=== PATIENT | female | born 1975 | race Caucasian/White ===

== ENCOUNTER → 2020-06-04 | Outpatient (CLI) | payer SELFPAY | LOC: WOUNDCARE 11:05 | PROVIDERS: ATTEND Orthopaedic Surgery Hand Surgery | DX: N61.1 Abscess of the breast and nipple (principal); L98.492 Non-pressure chronic ulcer of skin of other sites with fat layer exposed; J44.9 Chronic obstructive pulmonary disease, unspecified; M17.11 Unilateral primary osteoarthritis, right knee; F17.210 Nicotine dependence, cigarettes, uncomplicated | CPT/HCPCS: 10060; G0463 ==

== ENCOUNTER 2020-07-14 03:19 | Emergency (ER) | payer SELFPAY ==
[~2020-07-14] VITALS: Ht 165 cm; Wt 90.9 kg
[2020-07-14 03:30] VITALS: BP 140/78
[2020-07-14] MEDS ORDERED: RT-ALBUTEROL INHALER HFA (VENTOLIN HFA) 18 GM IH ONE (03:33)
[2020-07-14] MEDS ORDERED: IPRA3AMP31 (03:40)
[2020-07-14] MEDS ORDERED: TIOT18CA2 (03:40)
[2020-07-14] MEDS ORDERED: PROAIR (03:40)
[2020-07-14] MEDS ORDERED: NS IV 1000 ML 1,000 ML IV SCH (03:43)
[2020-07-14] MEDS ORDERED: MAGNESIUM 1 GM/100 ML IVPB 100 ML IV ONE ×2 (03:45)
[2020-07-14] MEDS ORDERED: methylPREDNISolone 125 MG (Solu-MEDROL) VIAL IVP ONE (03:45)
[2020-07-14] MEDS ORDERED: RT-ALBUTEROL/IPRATROPIUM 3 ML (DUONEB) VIAL INH ONE (03:45)
[2020-07-14 03:54] LABS: BASOPHILS % (AUTO) 0 % (0-10); EOSINOPHILS # (AUTO) 0.7 10^3/uL (0.0-0.3); EOSINOPHILS % (AUTO) 8 % (0-10); HEMATOCRIT 44 % (35-52); HEMOGLOBIN 14.2 G/DL (11.5-16.0); LYMPHOCYTES # (AUTO) 1.9 X 10^3 (1.0-4.0); LYMPHOCYTES % (AUTO) 23 % (12-44); MEAN CORPUSCULAR HEMOGLOBIN 29 PG (25-34); MEAN CORPUSCULAR HGB CONC 33 G/DL (32-36); MEAN CORPUSCULAR VOLUME 90 FL (80-99); MEAN PLATELET VOLUME 9.4 FL (7.4-10.4); MONOCYTES # (AUTO) 0.6 X 10^3 (0.0-1.0); MONOCYTES % (AUTO) 7 % (0-12); NEUTROPHILS # (AUTO) 5.1 X 10^3 (1.8-7.8); NEUTROPHILS % (AUTO) 62 % (42-75); PLATELET COUNT 309 10^3/uL (130-400); RED CELL DISTRIBUTION WIDTH 13.1 % (10.0-14.5); WHITE BLOOD COUNT 8.3 10^3/uL (4.3-11.0)
[2020-07-14 04:04] LABS: ALBUMIN 3.6 GM/DL (3.2-4.5); CHLORIDE 103 MMOL/L (98-107)
[2020-07-14 04:05] LABS: SODIUM 138 MMOL/L (135-145)
[2020-07-14 04:06] LABS: CALCIUM 8.9 MG/DL (8.5-10.1)
[2020-07-14 04:07] LABS: GLUCOSE 152 MG/DL (70-105); TOTAL PROTEIN 6.8 GM/DL (6.4-8.2)
[2020-07-14 04:08] LABS: CARBON DIOXIDE 23 MMOL/L (21-32)
[2020-07-14 04:09] LABS: BILIRUBIN,TOTAL 0.2 MG/DL (0.1-1.0)
[2020-07-14 04:10] LABS: ALKALINE PHOSPHATASE 61 U/L (40-136)
[2020-07-14 04:11] LABS: GFR ESTIMATED > 60
[2020-07-14 04:12] LABS: BUN/CREATININE RATIO 11
[2020-07-14 04:13] LABS: ALANINE AMINOTRANSFERASE 19 U/L (0-55)
--- NOTE | 2020-07-14 04:50 | NUR ---
PT ON PHONE WITH ET. REQUESTED THEY COME GET HER. STATED SHE WAS LEAVING AT THIS TIME.
--- NOTE | 2020-07-14 04:50 | NUR ---
AMA SHEET NOT SIGNED D/T PUI STATUS
--- NOTE | 2020-07-14 05:52 | Diagnostic Imaging Report ---
Indication: Reactive airway disease Portable chest 4:09 AM Heart size and pulmonary vascularity are normal. Lungs are clear. There are no effusions or pneumothoraces. IMPRESSION: Negative chest Dictated by: Dictated on workstation # [id number]
== END 2020-07-14 04:52 | disposition left against medical advice (07) ==
LOC: EDUNIT# 03:19 → ER 03:22
DX: R06.02 Shortness of breath (principal)
CPT/HCPCS: 36415; 71045; 80053; 83615; 83735; 83880; 84145; 85025; 86141

== ENCOUNTER 2020-09-07 19:18 | Inpatient (IN) | payer SELFPAY ==
[~2020-09-07] VITALS: Ht 160 cm; Wt 95.0 kg
[~2020-09-07 19:18] MED LIST: IPRA3AMP31; PROAIR; TIOT18CA2
--- NOTE | 2020-09-07 20:32 | ED Integumentary General ---
General Chief Complaint: Skin/Wound Problems Stated Complaint: SORE ON UPPER LIP Nursing Triage Note: PT ARRIVES TO ER WITH C/O UPPER LIP INFECTION. SHE WAS SEEN BY [facility] THIS WEEK FOR IT WELL History of Present Illness Date Seen by Provider: Sep 07, 2020 Time Seen by Provider: 20:15 Initial Comments This is a 45-year-old female who presents to the ER for complaints of a sore on her upper lip and nose. States she was evaluated and treated at [facility] 2 days ago for cellulitis and placed on Bactrim and Bactroban ointment. States she had what appeared to be a "white head" on her upper lip and she popped it she believes a week ago. States the white head returned worse than previous. States her upper lip has progressively worsened in swelling and redness despite taking Bactrim and applying Bactroban TID. Reports chills, unknown fevers. Denies cough, headache, shortness of breath, nausea/vomiting. Allergies and Home Medications Allergies Coded Allergies: No Known Drug Allergies (Unverified , 07/14/20) Patient Home Medication List Home Medication List Reviewed: Yes Review of Systems Review of Systems Constitutional: chills; No fever EENTM: see HPI Respiratory: cough (chronic) Cardiovascular: no symptoms reported Gastrointestinal: no symptoms reported Genitourinary: no symptoms reported Musculoskeletal: no symptoms reported Skin: see HPI Psychiatric/Neurological: No Symptoms Reported Endocrine: No Symptoms Reported Hematologic/Lymphatic: No Symptoms Reported Past Qklllui-Vbxbhm-Ftbegn Hx Patient Social History Alcohol Use: Denies Use Recreational Drug Use: Yes Drug of Choice: MARIJUANA Type Used: Cigarettes 2nd Hand Smoke Exposure: Yes Recent Foreign Travel: No Contact w/Someone Who Travel: No Recent Infectious Disease Expo: No Recent Hopitalizations: No Immunizations Up To Date Tetanus Booster (TDap): Less than 5yrs Seasonal Allergies Seasonal Allergies: No Past Medical History Surgeries: No Respiratory: Yes Asthma, COPD, Emphysema Cardiac: Yes High Cholesterol, Hypertension Neurological: No Genitourinary: No Gastrointestinal: Yes Gastroesophageal Reflux Musculoskeletal: Yes (CARPEL TUNNEL) HEENT: No Cancer: No Psychosocial: Yes Anxiety, Depression Integumentary: No Blood Disorders: No Physical Exam Vital Signs Vital Signs - First Documented 09/07/20 19:42 Temp 35.4 Pulse 88 Resp 16 B/P (MAP) 126/88 (101) Pulse Ox 96 Capillary Refill : Less Than 3 Seconds General Appearance: WD/WN, no apparent distress Neck: non-tender, full range of motion, normal inspection Cardiovascular: regular rate, rhythm, no edema, no murmur Respiratory: chest non-tender, normal breath sounds, no respiratory distress, no accessory muscle use, decreased breath sounds Gastrointestinal: normal bowel sounds, non tender, soft Neurologic/Psychiatric: no motor/sensory deficits, alert, normal mood/affect, oriented x 3 Skin: other Skin Problem Location: other (upper lip ) Skin Problem Character: erythema, lesion, vesicular, warm Progress/Results/Core Measures Results/Orders Lab Results Laboratory Tests Test 09/07/20 20:29 09/07/20 20:41 Range/Units White Blood Count 15.1 H 4.3-11.0 10^3/uL Red Blood Count 4.69 3.80-5.11 10^6/uL Hemoglobin 14.5 11.5-16.0 g/dL Hematocrit 43 35-52 % Mean Corpuscular Volume 91 80-99 fL Mean Corpuscular Hemoglobin 31 25-34 pg Mean Corpuscular Hemoglobin Concent 34 32-36 g/dL Red Cell Distribution Width 12.8 10.0-14.5 % Platelet Count 359 130-400 10^3/uL Mean Platelet Volume 9.1 9.0-12.2 fL Immature Granulocyte % (Auto) 0 % Neutrophils (%) (Auto) 76 H 42-75 % Lymphocytes (%) (Auto) 12 12-44 % Monocytes (%) (Auto) 8 0-12 % Eosinophils (%) (Auto) 3 0-10 % Basophils (%) (Auto) 0 0-10 % Neutrophils # (Auto) 11.5 H 1.8-7.8 10^3/uL Lymphocytes # (Auto) 1.9 1.0-4.0 10^3/uL Monocytes # (Auto) 1.2 H 0.0-1.0 10^3/uL Eosinophils # (Auto) 0.4 H 0.0-0.3 10^3/uL Basophils # (Auto) 0.1 0.0-0.1 10^3/uL Immature Granulocyte # (Auto) 0.1 0.0-0.1 10^3/uL Neutrophils % (Manual) 78 % Lymphocytes % (Manual) 10 % Monocytes % (Manual) 7 % Eosinophils % (Manual) 2 % Band Neutrophils 1 % Atypical Lymphocytes 2 % Anisocytosis SLIGHT Prothrombin Time 13.5 12.2-14.7 SEC INR Comment 1.0 0.8-1.4 Activated Partial Thromboplast Time 33 24-35 SEC Sodium Level 137 135-145 MMOL/L Potassium Level 4.1 3.6-5.0 MMOL/L Chloride Level 101 98-107 MMOL/L Carbon Dioxide Level 26 21-32 MMOL/L Anion Gap 10 5-14 MMOL/L Blood Urea Nitrogen 8 7-18 MG/DL Creatinine 0.79 0.60-1.30 MG/DL Estimat Glomerular Filtration Rate > 60 BUN/Creatinine Ratio 10 Glucose Level 105 70-105 MG/DL Lactic Acid Level 1.26 0.50-2.00 MMOL/L Calcium Level 9.2 8.5-10.1 MG/DL Corrected Calcium 9.3 8.5-10.1 MG/DL Total Bilirubin 0.4 0.1-1.0 MG/DL Aspartate Amino Transf (AST/SGOT) 14 5-34 U/L Alanine Aminotransferase (ALT/SGPT) 19 0-55 U/L Alkaline Phosphatase 79 40-136 U/L Total Protein 7.5 6.4-8.2 GM/DL Albumin 3.9 3.2-4.5 GM/DL Serum Test, Qualitative NEGATIVE NEGATIVE Urine Color YELLOW Urine Clarity CLOUDY Urine pH 7.0 5-9 Urine Specific [place] 1.025 H 1.016-1.022 Urine Protein TRACE H NEGATIVE Urine Glucose (UA) NEGATIVE NEGATIVE Urine Ketones NEGATIVE NEGATIVE Urine Nitrite NEGATIVE NEGATIVE Urine Bilirubin NEGATIVE NEGATIVE Urine Urobilinogen 0.2 < = 1.0 MG/DL Urine Leukocyte Esterase 2+ H NEGATIVE Urine RBC (Auto) NEGATIVE NEGATIVE Urine RBC 0-2 /HPF Urine WBC 50-100 H /HPF Urine Squamous Epithelial Cells 10-25 H /HPF Urine Crystals NONE /LPF Urine Bacteria MODERATE H /HPF Urine Casts NONE /LPF Urine Mucus NEGATIVE /LPF Urine Culture Indicated YES My Orders Orders - LAINEY CARTAGENA TELLER VAULT Cbc With Automated Diff (09/07/20 20:15) Comprehensive Metabolic Panel (09/07/20 20:15) Blood Culture (09/07/20 20:15) Protime With Inr (09/07/20 20:15) Partial Thromboplastin Time (09/07/20 20:15) Ed Iv/Invasive Line Start (09/07/20 20:15) Vital Signs Adult Sepsis Patie Q15M (09/07/20 20:15) Lactic Acid Analyzer (09/07/20 20:15) Acyclovir Injection (Zovirax Injection) (09/07/20 22:00) Hcg,Qualitative Serum (09/07/20 20:18) Iohexol Injection (Omnipaque 350 Mg/Ml 1 (09/07/20 20:45) Received Contrast (Hold Metformin- Contr (09/07/20 20:45) Ns (Ivpb) (Sodium Chloride 0.9% Ivpb Bag (09/07/20 20:45) Manual Differential (09/07/20 20:29) Ua Culture If Indicated (09/07/20 20:52) Fentanyl Injection (Sublimaze Injection (09/07/20 21:00) Urine Culture (09/07/20 20:41) Piperacillin Sodium/Tazobactam (Zosyn Vi (09/07/20 21:30) Medications Given in ED Current Medications Medications Dose Ordered Sig/Shamar Route Start Time Stop Time Status Last Admin Dose Admin Fentanyl Citrate 50 mcg ONCE ONCE IVP 09/07/20 21:00 09/07/20 21:01 DC 09/07/20 21:12 50 MCG Iohexol 75 ml ONCE ONCE IV 09/07/20 20:45 09/07/20 21:09 DC 09/07/20 20:57 75 ML Piperacillin Sod/ Tazobactam Sod 4.5 gm/Sodium Chloride 100 ml @ 200 mls/hr ONCE ONCE IV 09/07/20 21:30 09/07/20 21:59 DC 09/07/20 21:33 200 MLS/HR Sodium Chloride 100 ml ONCE ONCE IV 09/07/20 20:45 09/07/20 21:09 DC 09/07/20 20:57 80 ML Vital Signs/I&O 09/07/20 19:42 Temp 35.4 Pulse 88 Resp 16 B/P (MAP) 126/88 (101) Pulse Ox 96 09/08/20 00:00 Intake Total 100 ml Balance 100 ml Blood Pressure Mean: 101 Progress Progress Note : Progress Note Due to location and characteristics of swelling/rash the sepsis protocol was initiated. She was transferred from FT-1 to Exam room [address] maxillofacial with contrast ordered. CT shows abscess formation. Case was discussed with Dr. Morel for surgical consult. He requested NPO status after midnight for possible I&D of abscess in AM. Discussed case with Dr. Vieira and she agrees with inpatient admission to the medical unit with telemetry. VSS. Plan: Admit inpatient with telemetry to the medical unit Facial Cellulitis/UTI: -Vancomycin 1gm IV q12 hours, pharmacy to dose -Zosyn 4.5mg IV q 8 hours -Acyclovir 500mg IV q 8 hours -NS at 75ml/hr -NPO after midnight for possible I&D in AM. Pain/fever: -Fentanyl 50mcg IVP q 2 hours PRN pain -Acetaminophen 650mg PO q 6 hours PRN Nausea -Zofran 4mg IVP q4 hours PRN nausea Diagnostic Imaging Diagonstic Imaging: CT Plain Films/CT/US/NM/MRI: facial bones Comments NAME: NICHELLE MCDONNELL MED REC#: [id number] PT STATUS: REG ER : 1975 PHYSICIAN: HECTOR ROSARIO MD ADMIT DATE: 09/07/20/ER Signed Date of Exam:09/07/20 CT MAXILLOFACIAL W PROCEDURE: CT maxillofacial with contrast. TECHNIQUE: After intravenous administration of contrast, axial images were obtained through the face and reformatted into coronal and sagittal planes. Auto Exposure Controls were utilized during the CT exam to meet ALARA standards for radiation dose reduction. INDICATION: Cellulitis. COMPARISON: None. FINDINGS: Edema within the midline upper lip extending into the nasal septum. There is central low attenuation consistent with abscess formation measuring approximately 1.4 x 1.1 cm in diameter. This abscess is contiguous with dental caries in the maxillary medial incisors, bilaterally. There are no periapical lucencies about these medial incisors. No large periapical lucencies about the maxillary or mandibular dentition. There are additional dental caries within the maxillary and mandibular molars. The floor of the mouth and tongue base are unremarkable. Mild mucosal thickening in the right maxillary sinus. The visualized mastoids and middle ears are clear. No fracture. Normal alignment of the temporomandibular joints. IMPRESSION: Edema within the upper lip along the midline extending into the nasal septum with central low-attenuation compatible with an abscess. This edema and abscess are confluent with dental caries in the medial maxillary incisors, bilaterally. However, there are no large periapical lucencies about the dentition. Dictated by: Dictated on workstation # [id number] Reviewed: [facility] Time/Spoke to Admitting Phy: 21:[address] Vieira, agreeable with inpatient admission with telemetry to medical surgical floor. Time/Spoke to Consulting Phy: 21:[address] Morel, recommended nothing by mouth after midnight for possible incision and drainage of abscess and a.m. Impression Primary Impression: Cellulitis and abscess of mouth Disposition: ADMITTED INPATIENT Condition: Stable Admissions Decision to Admit Reason: Admit from ER (General) Decision to Admit/Date: Sep 07, 2020 Time/Decision to Admit Time: 21:00 Departure-Patient Inst. Referrals: NETTE JOYCE (PCP/Family) Primary Care Physician LAINEY CARTAGENA TELLER VAULT Sep 07, 2020 20:32
[2020-09-07 20:39] LABS: BASOPHILS # (AUTO) 0.1 10^3/uL (0.0-0.1); BASOPHILS % (AUTO) 0 % (0-10); EOSINOPHILS # (AUTO) 0.4 10^3/uL (0.0-0.3); EOSINOPHILS % (AUTO) 3 % (0-10); HEMATOCRIT 43 % (35-52); HEMOGLOBIN 14.5 g/dL (11.5-16.0); LYMPHOCYTES # (AUTO) 1.9 10^3/uL (1.0-4.0); LYMPHOCYTES % (AUTO) 12 % (12-44); MEAN CORPUSCULAR HEMOGLOBIN 31 pg (25-34); MEAN CORPUSCULAR HGB CONC 34 g/dL (32-36); MEAN CORPUSCULAR VOLUME 91 fL (80-99); MEAN PLATELET VOLUME 9.1 fL (9.0-12.2); MONOCYTES # (AUTO) 1.2 10^3/uL (0.0-1.0); MONOCYTES % (AUTO) 8 % (0-12); NEUTROPHILS # (AUTO) 11.5 10^3/uL (1.8-7.8); NEUTROPHILS % (AUTO) 76 % (42-75); PLATELET COUNT 359 10^3/uL (130-400); WHITE BLOOD COUNT 15.1 10^3/uL (4.3-11.0)
[2020-09-07] MEDS ORDERED: HOLD METFORMIN - RECEIVED CONTRAST 20 ML VIAL IV SCH (20:45)
[2020-09-07] MEDS ORDERED: NS 100 ML (IVPB) BAG IV ONE (20:45)
[2020-09-07] MEDS ORDERED: IOHEXOL 350 MG/ML 100 ML (OMNIPAQUE 350) VIAL IV ONE (20:45)
[2020-09-07 20:49] LABS: ALBUMIN 3.9 GM/DL (3.2-4.5)
[2020-09-07 20:50] LABS: CHLORIDE 101 MMOL/L (98-107); POTASSIUM 4.1 MMOL/L (3.6-5.0); PROTHROMBIN TIME PATIENT 13.5 SEC (12.2-14.7); SODIUM 137 MMOL/L (135-145)
[2020-09-07 20:51] LABS: CALCIUM 9.2 MG/DL (8.5-10.1)
[2020-09-07 20:52] LABS: GLUCOSE 105 MG/DL (70-105); TOTAL PROTEIN 7.5 GM/DL (6.4-8.2)
[2020-09-07 20:53] LABS: CARBON DIOXIDE 26 MMOL/L (21-32)
[2020-09-07 20:54] LABS: BILIRUBIN,TOTAL 0.4 MG/DL (0.1-1.0)
[2020-09-07 20:55] LABS: ALKALINE PHOSPHATASE 79 U/L (40-136)
[2020-09-07 20:56] LABS: CREATININE SERUM 0.79 MG/DL (0.60-1.30); GFR ESTIMATED > 60
[2020-09-07 20:57] LABS: BUN/CREATININE RATIO 10
[2020-09-07 20:57] LABS: BILIRUBIN,URINE NEGATIVE (NEGATIVE); CLARITY,URINE CLOUDY; COLOR,URINE YELLOW; GLUCOSE, URINE (UA) NEGATIVE (NEGATIVE); KETONES,URINE NEGATIVE (NEGATIVE); LEUKOCYTE ESTERASE ,URINE 2+ (NEGATIVE); NITRITE,URINE NEGATIVE (NEGATIVE); PROTEIN,URINE TRACE (NEGATIVE)
[2020-09-07 20:59] LABS: ALANINE AMINOTRANSFERASE 19 U/L (0-55)
[2020-09-07] MEDS ORDERED: ceFAZolin 2 GM IV Premixed 50 ML IV ONE (21:00)
[2020-09-07] MEDS ORDERED: fentaNYL INJECTION 100 MCG/2 ML AMP IVP ONE (21:00)
[2020-09-07 21:06] LABS: ANISOCYTOSIS SLIGHT; ATYPICAL LYMPHOCYTES 2 %; BAND NEUTROPHILS 1 %; EOSINOPHILS % (MANUAL) 2 %; LYMPHOCYTES % (MANUAL) 10 %; MONOCYTES % (MANUAL) 7 %; NEUTROPHILS % (MANUAL) 78 %
[2020-09-07 21:06] LABS: RBC,URINE 0-2 /HPF
[2020-09-07 21:07] LABS: BACTERIA,URINE MODERATE /HPF; WBC,URINE 50-100 /HPF
--- NOTE | 2020-09-07 21:08 | NUR ---
Recieved report from PAUL Vogt to assume care of pt at this time.
--- NOTE | 2020-09-07 21:20 | Diagnostic Imaging Report ---
PROCEDURE: CT maxillofacial with contrast. TECHNIQUE: After intravenous administration of contrast, axial images were obtained through the face and reformatted into coronal and sagittal planes. Auto Exposure Controls were utilized during the CT exam to meet ALARA standards for radiation dose reduction. INDICATION: Cellulitis. COMPARISON: None. FINDINGS: Edema within the midline upper lip extending into the nasal septum. There is central low attenuation consistent with abscess formation measuring approximately 1.4 x 1.1 cm in diameter. This abscess is contiguous with dental caries in the maxillary medial incisors, bilaterally. There are no periapical lucencies about these medial incisors. No large periapical lucencies about the maxillary or mandibular dentition. There are additional dental caries within the maxillary and mandibular molars. The floor of the mouth and tongue base are unremarkable. Mild mucosal thickening in the right maxillary sinus. The visualized mastoids and middle ears are clear. No fracture. Normal alignment of the temporomandibular joints. IMPRESSION: Edema within the upper lip along the midline extending into the nasal septum with central low-attenuation compatible with an abscess. This edema and abscess are confluent with dental caries in the medial maxillary incisors, bilaterally. However, there are no large periapical lucencies about the dentition. Dictated by: Dictated on workstation # [id number]
[2020-09-07] MEDS ORDERED: PIPERACILLIN SODIUM/TAZOBACTAM 4.5 GM in NS (IVPB) 100 ML IV ONE (21:30)
[2020-09-07] MEDS ORDERED: ACYCLOVIR INJECTION 800 MG in NS (IVPB) 250 ML IV SCH (22:00)
--- NOTE | 2020-09-07 23:20 | NUR ---
NICHELLE MCDONNELL admitted to room 405-1, with an admitting diagnosis of FACIAL CELLULITIS W/ABSCESS, on 09/07/20 from ED via , accompanied by STAFF.NICHELLE MCDONNELL introduced to surroundings, call light, bed controls, phone, TV, temperature control, lights, meal times, smoking policy, visitor policy, side rail policy, bathrooms and showers. Patient Rights given to patient in the handbook.NICHELLE MCDONNELL verbalizes understanding that [facility] is not responsible for the loss or damage to any personal effects or valuables that are kept in the patients posession during their hospitalization.
[2020-09-07] MEDS ORDERED: RT-ALBUTEROL/IPRATROPIUM 3 ML (DUONEB) VIAL ONE (23:22)
[2020-09-07] MEDS ORDERED: ACETAMINOPHEN 325 MG TABLET PO PRN (23:45)
[2020-09-07] MEDS ORDERED: ONDANSETRON 4 MG/2 ML (SDV) Z0FRAN IVP PRN (23:45)
[2020-09-08] VITALS (8 sets, daily range): BP systolic 110–158; BP diastolic 64–87
[2020-09-08] MEDS ORDERED: PIPERACILLIN/TAZO 4.5 GM VIAL (ZOSYN) IV ONE (01:10)
[2020-09-08] MEDS ORDERED: NS (IVPB) 100 ML ONE (01:10)
[2020-09-08] MEDS ORDERED: NS (IVPB) 250 ML ONE ×2 (01:10→02:37)
[2020-09-08] MEDS ORDERED: VANCOMYCIN 1000 MG/VIAL ONE ×2 (01:11→02:38)
[2020-09-08] MEDS ORDERED: ACYCLOVIR 500 MG/10 ML INJ (ZOVIRAX) VIAL IV ONE (01:11)
[2020-09-08] MEDS: fentaNYL INJECTION 100 MCG/2 ML AMP IVP PRN ×7 (01:32→23:44)
[2020-09-08] MEDS: NS IV 1000 ML 1,000 ML IV SCH ×2 (01:32→12:40)
[2020-09-08] MEDS: VANCOMYCIN 1 GM/NS 250 ML IVPB IV SCH ×10 (01:32→13:47)
[2020-09-08] MEDS ORDERED: VANCOMYCIN 1 GM/NS 250 ML IVPB IV SCH ×2 (03:00)
[2020-09-08] MEDS: RT-ALBUTEROL/IPRATROPIUM 3 ML (DUONEB) VIAL INH SCH ×7 (03:32→21:08)
[2020-09-08] MEDS: PIPERACILLIN/TAZO 4.5 GM/NS 100 ML IV SCH ×6 (04:09→20:23)
[2020-09-08 04:39] LABS: BASOPHILS % (AUTO) 0 % (0-10); EOSINOPHILS # (AUTO) 0.5 10^3/uL (0.0-0.3); EOSINOPHILS % (AUTO) 3 % (0-10); HEMATOCRIT 40 % (35-52); HEMOGLOBIN 13.5 g/dL (11.5-16.0); LYMPHOCYTES # (AUTO) 2.1 10^3/uL (1.0-4.0); LYMPHOCYTES % (AUTO) 14 % (12-44); MEAN CORPUSCULAR HEMOGLOBIN 31 pg (25-34); MEAN CORPUSCULAR HGB CONC 34 g/dL (32-36); MEAN CORPUSCULAR VOLUME 91 fL (80-99); MEAN PLATELET VOLUME 9.2 fL (9.0-12.2); MONOCYTES # (AUTO) 1.3 10^3/uL (0.0-1.0); MONOCYTES % (AUTO) 9 % (0-12); NEUTROPHILS # (AUTO) 11.6 10^3/uL (1.8-7.8); NEUTROPHILS % (AUTO) 74 % (42-75); PLATELET COUNT 334 10^3/uL (130-400); WHITE BLOOD COUNT 15.7 10^3/uL (4.3-11.0)
[2020-09-08 04:49] LABS: ALBUMIN 3.6 GM/DL (3.2-4.5); CHLORIDE 103 MMOL/L (98-107); POTASSIUM 3.8 MMOL/L (3.6-5.0); SODIUM 137 MMOL/L (135-145)
[2020-09-08 04:50] LABS: CALCIUM 8.8 MG/DL (8.5-10.1)
[2020-09-08 04:52] LABS: GLUCOSE 97 MG/DL (70-105); TOTAL PROTEIN 6.8 GM/DL (6.4-8.2)
[2020-09-08 04:53] LABS: BILIRUBIN,TOTAL 0.4 MG/DL (0.1-1.0); CARBON DIOXIDE 23 MMOL/L (21-32)
[2020-09-08 04:55] LABS: ALKALINE PHOSPHATASE 71 U/L (40-136); GFR ESTIMATED > 60
[2020-09-08 04:56] LABS: BUN/CREATININE RATIO 10
[2020-09-08 04:58] LABS: ALANINE AMINOTRANSFERASE 16 U/L (0-55)
[2020-09-08] MEDS ORDERED: ACYCLOVIR INJECTION 500 MG in NS (IVPB) 100 ML IV SCH (06:00)
[2020-09-08] MEDS: ACYCLOVIR INJECTION 500 MG in NS (IVPB) 100 ML IV SCH ×3 (06:30→23:53)
[2020-09-08] MEDS ORDERED: LIDOCAINE 1% INJ 50 ML (XYLOCAINE) VIAL IJ ONE (08:30)
[2020-09-08] MEDS ORDERED: LIDOCAINE 1% INJ 20 ML 20 ML VIAL ONE (08:33)
--- NOTE | 2020-09-08 09:10 | NUR ---
Collected material and consent for Dr. Morel per verbal request. Items collected consisted of a laceration kit, an 11 blade, 1% lidocaine, cultures ordered aerobic and anaerobic, and quarter inch iodoform.
--- NOTE | 2020-09-08 09:19 | Consultation - Surgery ---
ASHISH PRADO MED STUDENT 09/08/20 0919: History of Present Illness History of Present Illness Patient Consulted On(nuris/time) 09/08/20 0800 Date Seen by Provider: Sep 08, 2020 Time Seen by Provider: 08:00 History of Present Illness Patient presented to ED last night with chief complaint of upper lip and nose swelling. She was seen at [facility] several days ago and diagnosed with facial cellu litis. At that point in time she was started on bactrim and bactroban. She states that originally one week ago she had what appeared to be a "white head" appear on her upper lip. She proceeded to pop it herself and the "white head" appearing lesion reoccured again. She reports the pain is dull/achy and constant. Nothing improves the pain. Eating and talking worsen the pain. Allergies and Home Medications Allergies Coded Allergies: No Known Drug Allergies (Unverified , 07/14/20) Home Medications Albuterol Sulfate 1 Puff Puff, 2 PUFF INH QID PRN for SHORTNESS OF BREATH, (Reported) Brexpiprazole 0.25 Mg Tablet, Unknown Dose PO HS, (Reported) PATIENT RECIEVES FROM [facility]. FOR ADDITIONAL INFO SEE FINAL NOTE. Escitalopram Oxalate 20 Mg Tablet, 20 MG PO DAILY, (Reported) LAST FILLED 08/08/2020 #90/ DAY SUPPLY Ibuprofen 800 Mg Tablet, 800 MG PO TID PRN for PAIN-MILD, (Reported) LAST FILLED 09/05/2020 #21 Ipratropium/Albuterol Sulfate 3 Ml Ampul.neb, 3 ML IH Q4H PRN for SHORTNESS OF BREATH, (Reported) Meloxicam 15 Mg Tablet, 15 MG PO DAILY, (Reported) LAST FILLED 08/08/2020 #90/90 DAY SUPPLY Mometasone/Formoterol 13 Gm Hfa.aer.ad, 2 PUFF INH DAILY, (Reported) RINSE MOUTH AFTER EACH USE Montelukast Sodium 10 Mg Tablet, 10 MG PO DAILY, (Reported) LAST FILLED 08/08/2020 #30/30 DAY SUPPLY Mupirocin 22 Gm Oint...g., 1 APPLIC TP TID, (Reported) LAST FILLED 09/05/2020 5 DAY SUPPLY Pantoprazole Sodium 40 Mg Tablet.dr, 40 MG PO DAILY PRN for HEARTBURN, (Reported) Sulfamethoxazole/Trimethoprim 1 Each Tablet, 1 EACH PO BID, (Reported) LAST FILLED 09/05/2020 #20/10 DAY SUPPLY Past Vwnignj-Cohfee-Njwukp Hx Patient Social History Alcohol Use: Denies Use Recreational Drug Use: Yes Drug of Choice: MARIJUANA Type Used: Cigarettes 2nd Hand Smoke Exposure: Yes Recent Foreign Travel: No Contact w/Someone Who Travel: No Recent Infectious Disease Expo: No Recent Hopitalizations: No Immunizations Up To Date Tetanus Booster (TDap): Less than 5yrs Seasonal Allergies Seasonal Allergies: No Surgeries History of Surgeries: No Respiratory History of Respiratory Disorde: Yes Respiratory Disorders: Asthma, COPD, Emphysema Cardiovascular History of Cardiac Disorders: Yes Cardiac Disorders: High Cholesterol, Hypertension Neurological History of Neurological Disord: No Genitourinary History of Genitourinary Disor: No Gastrointestinal History of Gastrointestinal Di: Yes Gastrointestinal Disorders: Gastroesophageal Reflux Musculoskeletal History of Musculoskeletal Dis: Yes (CARPEL TUNNEL) HEENT History of HEENT Disorders: No Cancer History of Cancer: No Psychosocial History of Psychiatric Problem: Yes Behavioral Health Disorders: Anxiety, Depression Integumentary History of Skin or Integumenta: No Blood Transfusions History of Blood Disorders: No Family Medical History Family Medial History: Diabetes mellitus G8 BROTHER Review of Systems-General Constitutional: chills; No diaphoresis, No fever EENTM: see HPI, dental problems (tooth decay), mouth swelling, nose pain, other (abscess extending into the nasal septum); No blurred vision, No double vision Respiratory: no symptoms reported; No cough, No short of breath Cardiovascular: no symptoms reported; No chest pain, No edema Gastrointestinal: no symptoms reported; No constipation, No diarrhea Genitourinary: no symptoms reported; No dysuria, No frequency Musculoskeletal: no symptoms reported Skin: see HPI, other (abscess/tissue edema noted around her philtrum) Psychiatric/Neurological: No Symptoms Reported Physical Exam-General Problems Physical Exam Vital Signs Vital Signs - First Documented 09/07/20 09/07/20 09/08/20 19:42 23:11 06:46 Temp 35.4 Pulse 88 Resp 16 B/P (MAP) 126/88 (101) Pulse Ox 96 O2 Delivery Room Air O2 Flow Rate 0.00 Capillary Refill : Less Than 3 Seconds General Appearance: WD/WN, mild distress (pain associated with facial abscess) Eyes: Bilateral Eye EOMI HEENT: PERRL/EOMI Neck: non-tender, supple Respiratory: chest non-tender, no respiratory distress, no accessory muscle use Cardiovascular: normal peripheral pulses, regular rate, rhythm, no edema Peripheral Pulses: 2+ Dorsalis Pedis (R), 2+ Left Dors-Pedis (L), 2+ Radial Pulses (R), 2+ Radial Pulses (L) Gastrointestinal: non tender, soft Back: normal inspection Extremities: non-tender, no pedal edema, normal capillary refill Neurologic/Psychiatric: no motor/sensory deficits, alert, oriented x 3 Skin: normal color, warm/dry, other (abscess of philtrum extending to nasal septum) Lymphatic: no adenopathy Data Review Labs Laboratory Tests 09/07/20 20:29: White Blood Count 15.1H, Red Blood Count 4.69, Hemoglobin 14.5, Hematocrit 43, Mean Corpuscular Volume 91, Mean Corpuscular Hemoglobin 31, Mean Corpuscular Hemoglobin Concent 34, Red Cell Distribution Width 12.8, Platelet Count 359, Mean Platelet Volume 9.1, Immature Granulocyte % (Auto) 0, Neutrophils (%) (Auto) 76H, Lymphocytes (%) (Auto) 12, Monocytes (%) (Auto) 8, Eosinophils (%) (Auto) 3, Basophils (%) (Auto) 0, Neutrophils # (Auto) 11.5H, Lymphocytes # (Auto) 1.9, Monocytes # (Auto) 1.2H, Eosinophils # (Auto) 0.4H, Basophils # (Auto) 0.1, Immature Granulocyte # (Auto) 0.1, Neutrophils % (Manual) 78, Lymph ocytes % (Manual) 10, Monocytes % (Manual) 7, Eosinophils % (Manual) 2, Band Neutrophils 1, Atypical Lymphocytes 2, Anisocytosis SLIGHT, Prothrombin Time 13.5, INR Comment 1.0, Activated Partial Thromboplast Time 33, Sodium Level 137, Potassium Level 4.1, Chloride Level 101, Carbon Dioxide Level 26, Anion Gap 10, Blood Urea Nitrogen 8, Creatinine 0.79, Estimat Glomerular Filtration Rate > 60, BUN/Creatinine Ratio 10, Glucose Level 105, Lactic Acid Level 1.26, Calcium Level 9.2, Corrected Calcium 9.3, Total Bilirubin 0.4, Aspartate Amino Transf (AST/SGOT) 14, Alanine Aminotransferase (ALT/SGPT) 19, Alkaline Phosphatase 79, Total Protein 7.5, Albumin 3.9, Serum Test, Qualitative NEGATIVE 09/07/20 20:41: Urine Color YELLOW, Urine Clarity CLOUDY, Urine pH 7.0, Urine Specific [place] 1.025H, Urine Protein TRACEH, Urine Glucose (UA) NEGATIVE, Urine Ketones NEGATIVE, Urine Nitrite NEGATIVE, Urine Bilirubin NEGATIVE, Urine Urobilinogen 0.2, Urine Leukocyte Esterase 2+H, Urine RBC (Auto) NEGATIVE, Urine RBC 0-2, Urine WBC 50-100H, Urine Squamous Epithelial Cells 10-25H, Urine Crystals NONE, Urine Bacteria MODERATEH, Urine Casts NONE, Urine Mucus NEGATIVE, Urine Culture Indicated YES 09/08/20 04:10: White Blood Count 15.7H, Red Blood Count 4.41, Hemoglobin 13.5, Hematocrit 40, Mean Corpuscular Volume 91, Mean Corpuscular Hemoglobin 31, Mean Corpuscular Hemoglobin Concent 34, Red Cell Distribution Width 12.7, Platelet Count 334, Mean Platelet Volume 9.2, Immature Granulocyte % (Auto) 1, Neutrophils (%) (Auto) 74, Lymphocytes (%) (Auto) 14, Monocytes (%) (Auto) 9, Eosinophils (%) (Auto) 3, Basophils (%) (Auto) 0, Neutrophils # (Auto) 11.6H, Lymphocytes # (Auto) 2.1, Monocytes # (Auto) 1.3H, Eosinophils # (Auto) 0.5H, Basophils # (Auto) 0.0, Immature Granulocyte # (Auto) 0.1, Sodium Level 137, Potassium Level 3.8, Chloride Level 103, Carbon Dioxide Level 23, Anion Gap 11, Blood Urea Nitrogen 7, Creatinine 0.70, Estimat Glomerular Filtration Rate > 60, BUN/Creatinine Ratio 10, Glucose Level 97, Calcium Level 8.8, Corrected Calcium 9.1, Total Bilirubin 0.4, Aspartate Amino Transf (AST/SGOT) 13, Alanine Aminotransferase (ALT/SGPT) 16, Alkaline Phosphatase 71, Total Protein 6.8, Albumin 3.6 Assessment/Plan Assessment/Plan Assessment/Plan Facial cellulitis/abscess UTI Plan to perform incision and drainage of abscess Continue antibiotic coverage as ordered Clinical Quality Measures DVT/VTE Risk/Contraindication: Risk Factor Score Per Nursin RFS Level Per Nursing on Admit: 4+=Very High DEWEY PALAFOX DO 09/08/209: History of Present Illness History of Present Illness History of Present Illness Consult requested by Dr. Vieira for facial abscess. Patient is a 45-year-old female who states she has been having problems with cellulitis that began approximately 1 week ago. It originally started as a baker. She states that she popped it and then it reoccurred. This contin ued to worsen over the last 48 hours or so. She has swelling of the upper lip and up into the nares at the septum. The pressure is a dull achy and constant pain. Nothing has improved her symptoms. Patient states eating and talking makes it worse. Patient was seen several days ago at the [facility] clinic she was started on Bactrim and Bactroban at that time. She had a CT scan that d emonstrated changes consistent with cellulitis and an area of abscess on the upper portion of the lip near the septum. Allergies and Home Medications Allergies Coded Allergies: No Known Drug Allergies (Unverified , 07/14/20) Home Medications Albuterol Sulfate 1 Puff Puff, 2 PUFF INH QID PRN for SHORTNESS OF BREATH, (Reported) Brexpiprazole 0.25 Mg Tablet, Unknown Dose PO HS, (Reported) PATIENT RECIEVES FROM [facility]. FOR ADDITIONAL INFO SEE FINAL NOTE. Escitalopram Oxalate 20 Mg Tablet, 20 MG PO DAILY, (Reported) LAST FILLED 08/08/2020 #90/90 DAY SUPPLY Ibuprofen 800 Mg Tablet, 800 MG PO TID PRN for PAIN-MILD, (Reported) LAST FILLED 09/05/2020 #21 Ipratropium/Albuterol Sulfate 3 Ml Ampul.neb, 3 ML IH Q4H PRN for SHORTNESS OF BREATH, (Reported) Meloxicam 15 Mg Tablet, 15 MG PO DAILY, (Reported) LAST FILLED 08/08/2020 #90/90 DAY SUPPLY Mometasone/Formoterol 13 Gm Hfa.aer.ad, 2 PUFF INH DAILY, (Reported) RINSE MOUTH AFTER EACH USE Montelukast Sodium 10 Mg Tablet, 10 MG PO DAILY, (Reported) LAST FILLED 08/08/2020 #30/30 DAY SUPPLY Mupirocin 22 Gm Oint...g., 1 APPLIC TP TID, (Reported) LAST FILLED 09/05/2020 5 DAY SUPPLY Pantoprazole Sodium 40 Mg Tablet.dr, 40 MG PO DAILY PRN for HEARTBURN, (Reported) Sulfamethoxazole/Trimethoprim 1 Each Tablet, 1 EACH PO BID, (Reported) LAST FILLED 09/05/2020 #20/ DAY SUPPLY Patient Home Medication List Home Medication List Reviewed: Yes Past Hfrvupm-Sqrcgc-Ebwqsv Hx Reviewed Nursing Assessment Reviewed/Agree w Nursing PMH: Yes Family Medical History Significant Family History: No Pertinent Family Hx Family Medial History: Diabetes mellitus G8 BROTHER Review of Systems-General Constitutional: chills; No diaphoresis, No fever EENTM: dental problems (tooth decay), mouth swelling, nose pain, other (abscess extending into the nasal septum); No blurred vision, No double vision Respiratory: No cough, No short of breath Cardiovascular: No chest pain, No edema Gastrointestinal: No constipation, No diarrhea Genitourinary: No dysuria, No frequency Musculoskeletal: No back pain, No joint pain Skin: lesions, other (abscess/tissue changes face/upper lip) Psychiatric/Neurological: Denies Anxiety, Denies Depressed, Denies Emotional Problems All Other Systems Reviewed Negative Unless Noted: Yes (Negative excepted noted.) Physical Exam-General Problems Physical Exam General Appearance: WD/WN, no apparent distress HEENT: PERRL/EOMI, other (Erythema and swelling of upper lip extending into the nares/septum crusted lesion) Neck: non-tender, supple Respiratory: chest non-tender, no respiratory distress, no accessory muscle use Cardiovascular: regular rate, rhythm, no edema Gastrointestinal: non tender, soft Rectal: deferred Back: normal inspection, no CVA tenderness Extremities: non-tender, no pedal edema, normal capillary refill Neurologic/Psychiatric: no motor/sensory deficits, alert, normal mood/affect, oriented x 3 Skin: No normal color, No jaundice; other (Crusted lesion with some fluctuance upper lip extending into the septum surrounding inflammatory changes and induration) Lymphatic: no adenopathy Assessment/Plan Assessment/Plan Assessment/Plan Facial cellulitis/abscess UTI Patient was explained risk and benefits of having incision and drainage performed. She understands risk and benefits and wishes to proceed. Plan to perform incision and drainage of abscess Will obtain culture. Continue antibiotic coverage as ordered Supervisory-Addendum Brief Verification & Attestation Participated in pt care: history, MDM, physical Personally performed: exam, history, MDM, supervision of care Care discussed with: Medical Student Procedures: n/a Results interpretation: Verified all documentation Verification and Attestation of Medical Student E/M Service A medical student performed and documented this service in my presence. I reviewed and verified all information documented by the medical student and made modifications to such information, when appropriate. I personally performed the physical exam and medical decision making. Dewey Palafox, Sep 08, 2020,21:51 ASHISH PRADO MED STUDENT Sep 08, 2020 09:19 DEWEY PALAFOX DO Sep 08, 2020 21:49
--- NOTE | 2020-09-08 09:40 | NUR ---
Made patient clear liquid diet per Dr. Pandey request
[2020-09-08] MEDS: ENOXAPARIN 40 MG/0.4 ML (LOVENOX) SYR SQ SCH (09:46)
--- NOTE | 2020-09-08 10:00 | NUR ---
Applied non adherant dressing to patients upper lip per Dr. Pandey verbal order.
--- NOTE | 2020-09-08 13:00 | NUR ---
Went in patients room to see that the patient had disconnected her IV while zosyn was infusing. Patient stated that she had disconnected it to use the resteroom and forgot to let someone know when she got back in bed. Because of this I am unable to administer acyclovir on time.
[2020-09-08] MEDS ORDERED: IPRA3AMP31 IH (14:20)
[2020-09-08] MEDS ORDERED: MOME13HF INH (14:20)
[2020-09-08] MEDS ORDERED: RT-ALBUINH INH (14:20)
--- NOTE | 2020-09-08 14:56 | History & Physical ---
HPI History of Present Illness: 45 yo F that presented with swelling in her upper lip for the last 48hrs. States that on Tuesday she had a white head that she popped and then it continued to progress and worsen. Denies any fever or chills. No shortness of breath or troubles swallowing. Never had this happen previously. Only takes medications for her asthma. This AM Dr Morel did an I&D and patient states that the pressure has improved. Source: patient Date seen by provider: Sep 08, 2020 Time Seen by Provider: 09:45 Attending Physician Jaci Vieira MD PCP Carroll Ochoa Consult Date of Admission Sep 07, 2020 at 22:41 Home Medications Home Medications Reviewed patient Home Medication Reconciliation performed by pharmacy medication reconciliations mold technician and/or nursing. Patients Allergies have been reviewed. Allergies Coded Allergies: No Known Drug Allergies (Unverified , 07/14/20) NHT-Chamxm-Fhegsb Hx Patient Social History Alcohol Use: Denies Use Recreational Drug Use: Yes Drug of Choice: MARIJUANA Type Used: Cigarettes 2nd Hand Smoke Exposure: Yes Recent Foreign Travel: No Contact w/other who traveled: No Recent Hopitalizations: No Recent Infectious Disease Expo: No Immunizations Up To Date Tetanus Booster (TDap): Less than 5yrs Past Medical History Asthma Family Medical History Significant Family History: No Pertinent Family Hx Family History: Diabetes mellitus G8 BROTHER Review of Systems ([facility]) Constitutional: no symptoms reported; No chills EENTM: dental problems, mouth pain; No throat pain, No throat swelling Respiratory: no symptoms reported; No cough, No dyspnea on exertion, No short of breath Cardiovascular: no symptoms reported; No chest pain, No edema, No palpitations Gastrointestinal: no symptoms reported; No abdominal pain, No constipation, No diarrhea, No nausea, No vomiting Genitourinary: no symptoms reported; No dysuria, No frequency, No hematuria : No Musculoskeletal: no symptoms reported; No back pain, No joint pain, No muscle pain Skin: other (swelling and erythema in upper lip and jaw) Psychiatric/Neurological: No Symptoms Reported Reviewed Test Results Reviewed Test Results Lab Laboratory Tests Test 09/07/20 20:29 09/07/20 20:41 09/08/20 04:10 Range/Units White Blood Count 15.1 H 15.7 H 4.3-11.0 10^3/uL Red Blood Count 4.69 4.41 3.80-5.11 10^6/uL Hemoglobin 14.5 13.5 11.5-16.0 g/dL Hematocrit 43 40 35-52 % Mean Corpuscular Volume 91 91 80-99 fL Mean Corpuscular Hemoglobin 31 31 25-34 pg Mean Corpuscular Hemoglobin Concent 34 34 32-36 g/dL Red Cell Distribution Width 12.8 12.7 10.0-14.5 % Platelet Count 359 334 130-400 10^3/uL Mean Platelet Volume 9.1 9.2 9.0-12.2 fL Immature Granulocyte % (Auto) 0 1 % Neutrophils (%) (Auto) 76 H 74 42-75 % Lymphocytes (%) (Auto) 12 14 12-44 % Monocytes (%) (Auto) 8 9 0-12 % Eosinophils (%) (Auto) 3 3 0-10 % Basophils (%) (Auto) 0 0 0-10 % Neutrophils # (Auto) 11.5 H 11.6 H 1.8-7.8 10^3/uL Lymphocytes # (Auto) 1.9 2.1 1.0-4.0 10^3/uL Monocytes # (Auto) 1.2 H 1.3 H 0.0-1.0 10^3/uL Eosinophils # (Auto) 0.4 H 0.5 H 0.0-0.3 10^3/uL Basophils # (Auto) 0.1 0.0 0.0-0.1 10^3/uL Immature Granulocyte # (Auto) 0.1 0.1 0.0-0.1 10^3/uL Neutrophils % (Manual) 78 % Lymphocytes % (Manual) 10 % Monocytes % (Manual) 7 % Eosinophils % (Manual) 2 % Band Neutrophils 1 % Atypical Lymphocytes 2 % Anisocytosis SLIGHT Prothrombin Time 13.5 12.2-14.7 SEC INR Comment 1.0 0.8-1.4 Activated Partial Thromboplast Time 33 24-35 SEC Sodium Level 137 137 135-145 MMOL/L Potassium Level 4.1 3.8 3.6-5.0 MMOL/L Chloride Level 101 103 98-107 MMOL/L Carbon Dioxide Level 26 23 21-32 MMOL/L Anion Gap 10 11 5-14 MMOL/L Blood Urea Nitrogen 8 7 7-18 MG/DL Creatinine 0.79 0.70 0.60-1.30 MG/DL Estimat Glomerular Filtration Rate > 60 > 60 BUN/Creatinine Ratio 10 10 Glucose Level 105 97 70-105 MG/DL Lactic Acid Level 1.26 0.50-2.00 MMOL/L Calcium Level 9.2 8.8 8.5-10.1 MG/DL Corrected Calcium 9.3 9.1 8.5-10.1 MG/DL Total Bilirubin 0.4 0.4 0.1-1.0 MG/DL Aspartate Amino Transf (AST/SGOT) 14 13 5-34 U/L Alanine Aminotransferase (ALT/SGPT) 19 16 0-55 U/L Alkaline Phosphatase 79 71 40-136 U/L Total Protein 7.5 6.8 6.4-8.2 GM/DL Albumin 3.9 3.6 3.2-4.5 GM/DL Serum Test, Qualitative NEGATIVE NEGATIVE Urine Color YELLOW Urine Clarity CLOUDY Urine pH 7.0 5-9 Urine Specific [place] 1.025 H 1.016-1.022 Urine Protein TRACE H NEGATIVE Urine Glucose (UA) NEGATIVE NEGATIVE Urine Ketones NEGATIVE NEGATIVE Urine Nitrite NEGATIVE NEGATIVE Urine Bilirubin NEGATIVE NEGATIVE Urine Urobilinogen 0.2 < = 1.0 MG/DL Urine Leukocyte Esterase 2+ H NEGATIVE Urine RBC (Auto) NEGATIVE NEGATIVE Urine RBC 0-2 /HPF Urine WBC 50-100 H /HPF Urine Squamous Epithelial Cells 10-25 H /HPF Urine Crystals NONE /LPF Urine Bacteria MODERATE H /HPF Urine Casts NONE /LPF Urine Mucus NEGATIVE /LPF Urine Culture Indicated YES Physical Exam-([facility]) Physical Exam Vital Signs VS - Last 72 Hours, by Label 09/07/20 09/07/20 09/07/20 09/07/20 19:42 23:11 23:24 23:50 Temp 35.4 36.6 Pulse 88 71 Resp 16 19 B/P (MAP) 126/88 (101) 125/87 (101) Pulse Ox 96 94 92 92 O2 Delivery Room Air Room Air Room Air 09/08/20 09/08/20 09/08/20 09/08/20 00:00 00:16 01:24 03:47 Temp 36.3 36.6 37.1 Pulse 87 71 91 70 Resp 19 19 18 B/P (MAP) 140/85 (103) 125/87 150/70 (96) Pulse Ox 94 92 91 O2 Delivery Room Air Room Air Room Air 09/08/20 09/08/20 09/08/20 09/08/20 04:37 06:34 06:46 08:00 Temp 36.5 Pulse 81 86 Resp 18 B/P (MAP) 138/83 (101) Pulse Ox 85 93 91 O2 Delivery Room Air Room Air Room Air O2 Flow Rate 0.00 09/08/20 09/08/20 09/08/20 09/08/20 09:17 11:30 12:30 14:06 Temp 36.05976 Pulse 88 Pulse Ox 91 90 O2 Delivery Room Air Room Air O2 Flow Rate 0.00 0.00 Capillary Refill : Less Than 3 Seconds General Appearance: WD/WN, no apparent distress HEENT: PERRL/EOMI, other (Swollen and erythematous upper lip with poor dentition) Neck: non-tender, full range of motion, supple Respiratory: chest non-tender, lungs clear, normal breath sounds, no respiratory distress, no accessory muscle use Cardiovascular: normal peripheral pulses, regular rate, rhythm, no edema, no murmur Gastrointestinal: normal bowel sounds, non tender, soft Back: no CVA tenderness, no vertebral tenderness Extremities: normal range of motion, non-tender, normal inspection, no pedal edema, no calf tenderness, normal capillary refill Neurologic/Psychiatric: assistant education director II-XII nml as tested, no motor/sensory deficits, alert, normal mood/affect, oriented x 3 Lymphatic: no adenopathy Assessment/Plan Assessment/Plan Admission Status: Inpatient Order (span 2 midnights) Reason for Inpatient Admission: Patient required procedure and had cultures done, continue IV antibiotics (1) Cellulitis and abscess of mouth Status: Acute Assessment & Plan: - Cultures pending, Dr Morel with I&D of abscess this AM, Patient will need dental care at discharge (2) Dental caries Clinical Quality Measures DVT/VTE Risk/Contraindication: Risk Factor Score Per Nursin RFS Level Per Nursing on Admit: 4+=Very High ALMA ECHEVERRIA MD Sep 08, 2020 14:56
[2020-09-08] MEDS ORDERED: BREX0.25 PO (15:33)
[2020-09-08] MEDS ORDERED: IBUP-1780 PO (15:33)
[2020-09-08] MEDS ORDERED: PANT40TA2 PO (15:33)
[2020-09-08] MEDS ORDERED: MONT10TA26 PO (15:33)
[2020-09-08] MEDS ORDERED: MUPI22OI2 TP (15:33)
[2020-09-08] MEDS ORDERED: MELO15TA39 PO (15:33)
[2020-09-08] MEDS ORDERED: SULF1TAB35 PO (15:33)
[2020-09-08] MEDS ORDERED: ESCI20TA PO (15:33)
--- NOTE | 2020-09-08 15:36 | NUR ---
I SPOKE WITH THE PATIENT, WENT THROUGH THE EXTERNAL MED HISTORY, CALLED [facility] IN [place], [facility], [facility] AND [facility] TO HELP ME COMPLETE THIS MED REC. MEDICATIONS FROM [facility]: 08/08/2020 MONTELUKAST 10MG #30/30DS MEDICATIONS FROM [facility] REPOSITORY: 08/08/2020 LEXAPRO 20MG #90/90DS 08/08/2020 MONTELUKAST 10MG #30/30DS PATIENT STATES THAT SHE GETS REXULTI FROM [facility]. I CALLED TO VERIFY AND THEY TOLD ME THAT THEY AREN'T ALLOWED TO CONFIRM OR DENY IF SHE HAD BEEN THERE BEFORE. FOR THIS REASON I DO NOT HAVE A DATE THAT IT WAS LAST FILLED SINCE PATIENT PICKS UP THE MEDICATION FROM THAT FACILITY, I ALSO HAVE NO DOSE LISTED EITHER FOR THIS SAME REASON AND BECAUSE PATIENT IS UNSURE.
--- NOTE | 2020-09-08 16:00 | NUR ---
Asked Dr. Vieira if pateint could resume her Singulair per pateint request. Dr. Vieira said "yes." Order placed
[2020-09-08] MEDS ORDERED: SIMvastatin 10 MG (ZOCOR) TAB ONE (20:13)
[2020-09-08] MEDS ORDERED: MONTELUKAST 10 MG (SINGULAIR) TAB ONE (20:21)
[2020-09-08] MEDS: MONTELUKAST 10 MG (SINGULAIR) TAB PO SCH (20:23)
[2020-09-09] MEDS: VANCOMYCIN 1 GM/NS 250 ML IVPB IV SCH ×2 (01:23)
[2020-09-09] MEDS: RT-ALBUTEROL/IPRATROPIUM 3 ML (DUONEB) VIAL INH SCH ×4 (02:24→14:31)
[2020-09-09] MEDS: PIPERACILLIN/TAZO 4.5 GM/NS 100 ML IV SCH ×4 (02:48→11:56)
[2020-09-09] MEDS: fentaNYL INJECTION 100 MCG/2 ML AMP IVP PRN ×4 (02:49→14:21)
[2020-09-09] MEDS: NS IV 1000 ML 1,000 ML IV SCH ×2 (02:51→09:44)
[2020-09-09 04:00] VITALS: BP 113/64
--- NOTE | 2020-09-09 04:00 | OPERATIVE REPORT ---
DATE OF SERVICE: 09/08/2020 PREOPERATIVE DIAGNOSIS: Facial abscess. POSTOPERATIVE DIAGNOSIS: Facial abscess. PROCEDURE: Incision and drainage of facial abscess/upper lip. SURGEON: Joce Morel DO ANESTHESIA: 1% Xylocaine 4 mL. COMPLICATIONS: None. INDICATIONS: The patient is a 45-year-old female with a facial abscess. She understands risks and benefits of procedure and wished to proceed with procedure. Consent was signed in the chart. DESCRIPTION OF PROCEDURE: The patient was prepped and draped in sterile fashion. Timeout was performed. Local anesthetic was infiltrated after the area was prepped and draped in sterile fashion. Once anesthetic effect took place, 11 blade scalpel was used to make a small skin incision over the area of fluctuance. Purulent material erupted. Culture was obtained. The wound was irrigated and a sterile bandage was placed over the wound. The patient tolerated procedure well without any complications. Job ID: [id number] DocumentID: [id number] Dictated Date: 09/08/2020 22:36:56 Assembly Line Inspector Date: 09/09/2020 04:00:32 Dictated By: JOCE MOREL DO
[2020-09-09 04:26] LABS: BASOPHILS % (AUTO) 0 % (0-10); EOSINOPHILS # (AUTO) 0.6 10^3/uL (0.0-0.3); EOSINOPHILS % (AUTO) 7 % (0-10); HEMATOCRIT 36 % (35-52); HEMOGLOBIN 12.1 g/dL (11.5-16.0); LYMPHOCYTES # (AUTO) 1.8 10^3/uL (1.0-4.0); LYMPHOCYTES % (AUTO) 21 % (12-44); MEAN CORPUSCULAR HEMOGLOBIN 31 pg (25-34); MEAN CORPUSCULAR HGB CONC 34 g/dL (32-36); MEAN CORPUSCULAR VOLUME 91 fL (80-99); MONOCYTES # (AUTO) 0.8 10^3/uL (0.0-1.0); MONOCYTES % (AUTO) 9 % (0-12); NEUTROPHILS # (AUTO) 5.4 10^3/uL (1.8-7.8); NEUTROPHILS % (AUTO) 63 % (42-75); PLATELET COUNT 294 10^3/uL (130-400); WHITE BLOOD COUNT 8.7 10^3/uL (4.3-11.0)
[2020-09-09 04:53] LABS: BUN/CREATININE RATIO 9; CALCIUM 8.4 MG/DL (8.5-10.1); CARBON DIOXIDE 24 MMOL/L (21-32); CHLORIDE 106 MMOL/L (98-107); CREATININE SERUM 0.67 MG/DL (0.60-1.30); GFR ESTIMATED > 60; GLUCOSE 105 MG/DL (70-105); POTASSIUM 3.7 MMOL/L (3.6-5.0); SODIUM 139 MMOL/L (135-145)
--- NOTE | 2020-09-09 07:15 | Progress Note - Surgery ---
ASHISH PRADO MED STUDENT 09/09/20 0715: Subjective Date Seen by a Provider: Sep 09, 2020 Time Seen by a Provider: 07:05 Subjective/Events-last exam Patient states she is doing better this morning. Reports that much of the pressure around her upper lip/nose has decreased quite a bit. She reports that she is currently having dull/achy pain rated at a 5/10 currently around her upper lip/nose. Reports that the pain does not radiate anywhere. She reports that the fentanyl and acetaminophen are controlling her pain for the most part. She reports decreased drainage from where the abscess was incised yesterday morning. Dressing is dry and intact. Reports she is able to eat jello and drink fluids without any issue. She reports that she has been wheezing a lot, but that is normal given she has severe asthma/COPD. She denies shortness of breath, chest pain, nausea, vomiting, fever, or chills. Reports she slept fairly well over night. She has no further questions/concerns at this point in time. Focused Exam Lactate Level 09/07/20 20:29: Lactic Acid Level 1.26 Objective Exam Vital Signs Date Time Temp Pulse Resp B/P (MAP) Pulse Ox O2 Delivery O2 Flow Rate FiO2 09/09/20 06:46 OxyMask 2.00 09/09/20 06:36 90 Room Air 09/09/20 04:00 36.6 84 18 113/64 (80) 93 Room Air 09/09/20 02:24 91 Room Air 09/09/20 01:00 88 09/08/20 23:33 36.7 80 22 136/82 (100) 95 Room Air 09/08/20 20:00 Room Air 09/08/20 19:49 36.6 73 22 110/64 (79) 90 Room Air 09/08/20 19:00 83 09/08/20 16:00 35.6 78 18 118/77 (91) 96 Room Air 09/08/20 14:06 90 Room Air 0.00 09/08/20 12:30 88 09/08/20 12:00 36.5 98 20 158/83 (108) 92 Room Air 09/08/20 11:30 91 Room Air 0.00 09/08/20 09:17 36.11584 09/08/20 08:00 Room Air 09/08/20 08:00 36.5 86 18 138/83 (101) 91 Room Air I & O 09/09/20 07:00 Intake Total 2830 ml Balance 2830 ml Capillary Refill : Less Than 3 Seconds General Appearance: No Apparent Distress, WD/WN HEENT: PERRL/EOMI Neck: Full Range of Motion, Non Tender Respiratory: Chest Non Tender, No Accessory Muscle Use, No Respiratory Distress, Wheezing (End expiratory wheezing bilaterally all lobes) Cardiovascular: Regular Rate, Rhythm, No Edema, Normal Peripheral Pulses Peripheral Pulses: 2+ Dorsalis Pedis (R), 2+ Left Dors-Pedis (L), 2+ Radial Pulses (R), 2+ Radial Pulses (L) Gastrointestinal: normal bowel sounds, non tender, soft Extremity: Normal Capillary Refill, Non Tender, No Pedal Edema Neurologic/Psychiatric: Alert, Oriented x3, No Motor/Sensory Deficits, Normal Mood/Affect Skin: Normal Color, Warm/Dry, Other (abscess to philtrum covered with dry dressing) Lymphatic: No Adenopathy Results Lab Laboratory Tests 09/09/20 04:05: White Blood Count 8.7, Red Blood Count 3.95, Hemoglobin 12.1, Hematocrit 36, Mean Corpuscular Volume 91, Mean Corpuscular Hemoglobin 31, Mean Corpuscular Hemoglobin Concent 34, Red Cell Distribution Width 12.6, Platelet Count 294, Mean Platelet Volume 9.0, Immature Granulocyte % (Auto) 0, Neutrophils (%) (Auto) 63, Lymphocytes (%) (Auto) 21, Monocytes (%) (Auto) 9, Eosinophils (%) (Auto) 7, Basophils (%) (Auto) 0, Neutrophils # (Auto) 5.4, Lymphocytes # (Auto) 1.8, Monocytes # (Auto) 0.8, Eosinophils # (Auto) 0.6H, Basophils # (Auto) 0.0, Immature Granulocyte # (Auto) 0.0, Sodium Level 139, Potassium Level 3.7, Chloride Level 106, Carbon Dioxide Level 24, Anion Gap 9, Blood Urea Nitrogen 6L , Creatinine 0.67, Estimat Glomerular Filtration Rate > 60, BUN/Creatinine Ratio 9, Glucose Level 105, Calcium Level 8.4L Microbiology 09/07/20 Blood Culture - Preliminary, Resulted No growth 09/07/20 Urine Culture - Final, Complete >=3 Gram Positive Isolates Assessment/Plan Assessment/Plan Assessment/Plan Facial cellulitis/abscess UTI Patient status post incision and drainage of abscess of the philtrum Continue antibiotic coverage as ordered Continue current pain management as ordered Clinical Quality Measures DVT/VTE Risk/Contraindication: Risk Factor Score Per Nursin RFS Level Per Nursing on Admit: 4+=Very High JOCE MOREL DO 09/09/20 1441: Subjective Subjective/Events-last exam Patient states she is feeling better. The pressure has decreased from the abscess. Patient states her pain is approximately a 5 out of 10. No significant drainage this overall has decreased. She is tolerating diet. She denies any nausea vomiting fever sweats chills shortness of breath or chest pain. Objective Exam General Appearance: No Apparent Distress, WD/WN HEENT: PERRL/EOMI Neck: Full Range of Motion, Non Tender Respiratory: Chest Non Tender, No Accessory Muscle Use, No Respiratory Distress Cardiovascular: Regular Rate, Rhythm, No Edema Gastrointestinal: non tender, soft Extremity: Normal Capillary Refill, Non Tender Neurologic/Psychiatric: Alert, Oriented x3, No Motor/Sensory Deficits, Normal Mood/Affect Skin: Normal Color, Other (Indurated skin upper lip small opening no fluctuance at this time) Lymphatic: No Adenopathy Assessment/Plan Assessment/Plan Assessment/Plan Facial cellulitis/abscess s/p incision and drainage yesterday at bedside UTI Continue antibiotic Continue current pain management Patient wanting to go home, if any worsening needs to be re-evaluated Needs Dental follow up Supervisory-Addendum Brief Verification & Attestation Participated in pt care: history, MDM, physical Personally performed: exam, history, MDM, supervision of care Care discussed with: Medical Student Procedures: n/a Results interpretation: Verified all documentation Verification and Attestation of Medical Student E/M Service A medical student performed and documented this service in my presence. I rev iewed and verified all information documented by the medical student and made modifications to such information, when appropriate. I personally performed the physical exam and medical decision making. Joce Morel, Sep 09, 2020,14:41 ASHISH PRADO MED STUDENT Sep 09, 2020 07:15 JOCE MOREL DO Sep 09, 2020 14:41
[2020-09-09] MEDS: ACYCLOVIR INJECTION 500 MG in NS (IVPB) 100 ML IV SCH ×2 (07:18→14:22)
[2020-09-09 08:00] VITALS: BP 130/66
[2020-09-09] MEDS: ENOXAPARIN 40 MG/0.4 ML (LOVENOX) SYR SQ SCH (09:10)
[2020-09-09] MEDS: MONTELUKAST 10 MG (SINGULAIR) TAB PO SCH (09:10)
--- NOTE | 2020-09-09 09:24 | NUR ---
Messaged Dr. Morel asking if we could advance the patients diet per Dr. Holliday request
--- NOTE | 2020-09-09 09:32 | NUR ---
Ordered Advair [address] Holliday verbal request at this time.
[2020-09-09] MEDS ORDERED: TROUGH ORDER-PHARMACY XX ONE (11:00)
--- NOTE | 2020-09-09 11:21 | Discharge Summary ---
Diagnosis/Chief Complaint Date of Admission Sep 07, 2020 at 22:41 Date of Discharge 09/09/20 Admission Diagnosis Admission Diagnosis See problem list Discharge Diagnosis See below Problems/Diagnosis: (1) Cellulitis and abscess of mouth Assessment & Plan: - Cultures pending, Dr Morel with I&D of abscess this AM, Patient will need dental care at discharge 09/09: Patient improving on IV antibiotics, transitioned to PO antibiotics Status: Acute (2) Dental caries Chief Complaint/HPI Chief Complaint/HPI 45 yo F that presented with swelling in her upper lip for the last 48hrs. States that on Tuesday she had a white head that she popped and then it continued to progress and worsen. Denies any fever or chills. No shortness of breath or troubles swallowing. Never had this happen previously. Only takes medications for her asthma. This AM Dr Morel did an I&D and patient states that the pressure has improved. Discharge Summary-Simple/Stand Procedures I&D of upper lip Consultations Dr Morel: General Surgery Discharge Physical Examination Allergies: Coded Allergies: No Known Drug Allergies (Unverified , 07/14/20) Vitals & I&Os Vital Sign - Last 12Hours Date Time Temp Pulse Resp B/P (MAP) Pulse Ox O2 Delivery O2 Flow Rate FiO2 09/09/20 10:48 92 Room Air 09/09/20 08:00 36.1 78 20 130/66 (87) 09/09/20 06:46 2.00 Intake and Output 09/09/20 00:00 Intake Total 1930 ml Balance 1930 ml General Appearance: Alert, Oriented X3, Cooperative, No Acute Distress HEENT: Other (upper lip swelling improving, mild drainage) Respiratory: Clear to Auscultation, Normal Air Movement Cardiovascular: Regular Rate, No Murmurs Abdominal: Normal Bowel Sounds, Soft, No Tenderness, No Masses Extremities: No Edema, No Tenderness/Swelling Skin: No Rashes Neuro: Strength at 5/5 X4 Ext, Sensation Intact, Cranial Nerves 3-12 NL Psych/Mental Status: Mental Status NL, Mood NL Hospital Course Was the Problem List Reviewed?: Yes See final discharge diagnosis. Discussion & Recommendations 45 yo F that had upper lip abscess that has I&D by Dr Morel from dental caries. Patient will need to see dentist after discharge. Patient sent home with PO antibiotics. Discharge Condition at discharge stable Instructions to patient/family Please see electronic discharge instructions given to patient. Discharge Medications Reviewed and agree with Discharge Medication list on patient's Discharge Instruction sheet Clinical Quality Measures DVT/VTE Risk/Contraindication: Risk Factor Score Per Nursin RFS Level Per Nursing on Admit: 4+=Very High ALMA ECHEVERRIA MD Sep 09, 2020 11:21
[2020-09-09] MEDS ORDERED: AMOX-358 PO (11:23)
--- NOTE | 2020-09-09 11:24 | Discharge Summary ---
Discharge [facility] Reconcile Patient Problems Problems Reviewed?: Yes Discharge Medications New, Converted or Re-Newed RX: Transmitted to Pharmacy New Medications: Amoxicillin/Potassium Clav (Augmentin 875-125 Tablet) 1 Each Tablet 1 EACH PO BID for 7 Days, #14 TAB Continued Medications: Albuterol Sulfate (Proair Hfa) 1 Puff Puff 2 PUFF INH QID PRN for SHORTNESS OF BREATH, INHALER Brexpiprazole (Rexulti) 0.25 Mg Tablet Unknown Dose PO HS, TAB PATIENT RECIEVES FROM [facility]. FOR ADDITIONAL INFO SEE FINAL NOTE. Escitalopram Oxalate (Lexapro) 20 Mg Tablet 20 MG PO DAILY, TAB LAST FILLED 08/08/2020 #90/90 DAY SUPPLY Ibuprofen (Ibuprofen) 800 Mg Tablet 800 MG PO TID PRN for PAIN-MILD, TAB LAST FILLED 09/05/2020 #21 Ipratropium/Albuterol Sulfate (Iprat-Albut 0.5-3(2.5) mg/3 ml) 3 Ml Ampul.neb 3 ML IH Q4H PRN for SHORTNESS OF BREATH, EACH Mometasone/Formoterol (Dulera 200 Mcg/5 Mcg Inhaler) 13 Gm Hfa.aer.ad 2 PUFF INH DAILY, INHALER RINSE MOUTH AFTER EACH USE Montelukast Sodium (Montelukast Sodium) 10 Mg Tablet 10 MG PO DAILY, TAB LAST FILLED 08/08/2020 #30/30 DAY SUPPLY Mupirocin (Mupirocin) 22 Gm Oint...g. 1 APPLIC TP TID, TUBE LAST FILLED 09/05/2020 5 DAY SUPPLY Pantoprazole Sodium (Protonix) 40 Mg Tablet.dr 40 MG PO DAILY PRN for HEARTBURN, TAB Discontinued Medications: Meloxicam (Meloxicam) 15 Mg Tablet 15 MG PO DAILY, TAB LAST FILLED 08/08/2020 #90/90 DAY SUPPLY Sulfamethoxazole/Trimethoprim (Bactrim Ds Tablet) 1 Each Tablet 1 EACH PO BID, TAB LAST FILLED 09/05/2020 #20/10 DAY SUPPLY Patient Instructions Goal/Follow Up Appt: Angel with [facility] next week Will need Dental appt [facility] - Unable to tolerate antibiotic - Pain worsens Activity & Diet Discharge Diet: Soft Diet Activity as Tolerated: Yes Orders-Post D/C & Referrals Pneu Vac Indicated: Yes Copy Copies To 1: Alison CRUZ HOLLY R MD Sep 09, 2020 11:24
[2020-09-09 12:00] VITALS: BP 115/60
[2020-09-09 16:00] VITALS: BP 120/71
[2020-09-09 18:59] VITALS: BP 120/71
[2020-09-09] MEDS ORDERED: ADVAIR HFA 115/21 MCG INHALER 8 GM IH SCH (21:00)
== END 2020-09-09 19:04 | disposition home or self-care (01) | DRG 137 ==
LOC: EDUNIT# 19:18 → ER 19:19 → 4TH 22:41
PROVIDERS: ADMIT Internal Medicine; ATTEND Internal Medicine
PROC: 0J910ZZ Drainage of Face Subcutaneous Tissue and Fascia, Open Approach (ICD-10-PCS; principal; 2020-09-08)
DX: K13.0 Diseases of lips (principal); K12.2 Cellulitis and abscess of mouth; N39.0 Urinary tract infection, site not specified; J34.0 Abscess, furuncle and carbuncle of nose; K02.9 Dental caries, unspecified; J43.9 Emphysema, unspecified; E78.00 Pure hypercholesterolemia, unspecified; I10 Essential (primary) hypertension; K21.9 Gastro-esophageal reflux disease without esophagitis; F41.9 Anxiety disorder, unspecified; F32.9 Major depressive disorder, single episode, unspecified
CPT/HCPCS: 36415; 70487; 80048; 80053; 81000; 83605; 84703; 85007; 85025; 85027; 85610; 85730; 87040; 87070; 87075; 87077; 87088; 87186; 87205; 94640; 94760

== ENCOUNTER → 2020-09-08 | Outpatient (CLI) | payer SELFPAY ==
[~2020-09-08] MED LIST changes: +AMOX-358 PO; +BREX0.25 PO; +ESCI20TA PO; +IBUP-1780 PO; +IPRA3AMP31 IH; +MELO15TA39 PO; +MOME13HF INH; +MONT10TA26 PO; +MUPI22OI2 TP; +PANT40TA2 PO; +RT-ALBUINH INH; +SULF1TAB35 PO
== END ==
LOC: RT 13:00
PROVIDERS: ATTEND Nurse Practitioner Family
DX: R94.2 Abnormal results of pulmonary function studies (principal)

== ENCOUNTER 2020-10-02 15:55 | Inpatient (IN) | payer SELFPAY ==
[~2020-10-02] VITALS: Ht 165.1 cm; Wt 98.9 kg
[2020-10-02] MEDS ORDERED: RT-ALBUTEROL INHALER HFA (VENTOLIN HFA) 18 GM IH ONE (16:06)
[2020-10-02] MEDS ORDERED: NS IV 1000 ML 1,000 ML IV SCH (16:20)
[2020-10-02 16:28] LABS: BASOPHILS % (AUTO) 1 % (0-10); EOSINOPHILS % (AUTO) 12 % (0-10); HEMATOCRIT 39 % (35-52); LYMPHOCYTES # (AUTO) 2.2 10^3/uL (1.0-4.0); LYMPHOCYTES % (AUTO) 28 % (12-44); MEAN CORPUSCULAR HEMOGLOBIN 31 pg (25-34); MEAN CORPUSCULAR HGB CONC 33 g/dL (32-36); MEAN CORPUSCULAR VOLUME 93 fL (80-99); MEAN PLATELET VOLUME 9.6 fL (9.0-12.2); MONOCYTES # (AUTO) 0.7 10^3/uL (0.0-1.0); MONOCYTES % (AUTO) 9 % (0-12); NEUTROPHILS # (AUTO) 4.1 10^3/uL (1.8-7.8); NEUTROPHILS % (AUTO) 51 % (42-75); PLATELET COUNT 279 10^3/uL (130-400); WHITE BLOOD COUNT 8.1 10^3/uL (4.3-11.0)
[2020-10-02] MEDS ORDERED: RT-ALBUTEROL/IPRATROPIUM 3 ML (DUONEB) VIAL INH ONE (16:30)
[2020-10-02] MEDS ORDERED: methylPREDNISolone 125 MG (Solu-MEDROL) VIAL IVP ONE (16:30)
[2020-10-02] MEDS ORDERED: MAGNESIUM 1 GM/100 ML IVPB 100 ML IV ONE ×2 (16:30→18:30)
[2020-10-02 17:26] LABS: ALBUMIN 3.5 GM/DL (3.2-4.5); CHLORIDE 104 MMOL/L (98-107); POTASSIUM 3.8 MMOL/L (3.6-5.0); SODIUM 137 MMOL/L (135-145)
[2020-10-02 17:27] LABS: CALCIUM 8.4 MG/DL (8.5-10.1)
[2020-10-02 17:28] LABS: GLUCOSE 111 MG/DL (70-105); TOTAL PROTEIN 6.2 GM/DL (6.4-8.2)
[2020-10-02 17:29] LABS: CARBON DIOXIDE 26 MMOL/L (21-32)
--- NOTE | 2020-10-02 17:29 | ED Respiratory ---
General Chief Complaint: Respiratory Problems Stated Complaint: ASTHMA ATTACK;LOW O2 Nursing Triage Note: Pt to ED by POV. Pt reports being at [facility] with an O2 sat of 87% on rooom air. Pt reports being told to come to ED. Pt reports increased cough with large amount of sputum over the past couple days. Pt very labored upon arrival to ED in wheelchair. Source: patient Exam Limitations: no limitations History of Present Illness Date Seen by Provider: Oct 02, 2020 Time Seen by Provider: 15:56 Initial Comments This 45-year-old woman presents to the emergency room with 2 to 3 days of escalating wheezing and shortness of breath. She has history of asthma and smokes. She also has had a productive cough. She went to the [facility] drive-through [employer] testing station and was found to be hypoxic with an oxygen saturation in the 80s. She was directed to the emergency room. Patient is noted to have significant tight wheezing on arrival. Oxygen saturation was 89% on room air. Allergies and Home Medications Allergies Coded Allergies: No Known Drug Allergies (Unverified , 07/14/20) Home Medications Albuterol Sulfate 1 Puff Puff, 2 PUFF INH QID PRN for SHORTNESS OF BREATH, (Reported) Amoxicillin/Potassium Clav 1 Each Tablet, 1 EACH PO BID Prescribed by: ALMA ECHEVERRIA on 09/09/20 1123 Brexpiprazole 0.25 Mg Tablet, Unknown Dose PO HS, (Reported) PATIENT RECIEVES FROM [facility]. FOR ADDITIONAL INFO SEE FINAL NOTE. Escitalopram Oxalate 20 Mg Tablet, 20 MG PO DAILY, (Reported) LAST FILLED 08/08/2020 #90/90 DAY SUPPLY Ibuprofen 800 Mg Tablet, 800 MG PO TID PRN for PAIN-MILD, (Reported) LAST FILLED 09/05/2020 #21 Ipratropium/Albuterol Sulfate 3 Ml Ampul.neb, 3 ML IH Q4H PRN for SHORTNESS OF BREATH, (Reported) Mometasone/Formoterol 13 Gm Hfa.aer.ad, 2 PUFF INH DAILY, (Reported) RINSE MOUTH AFTER EACH USE Montelukast Sodium 10 Mg Tablet, 10 MG PO DAILY, (Reported) LAST FILLED 08/08/2020 #30/30 DAY SUPPLY Mupirocin 22 Gm Oint...g., 1 APPLIC TP TID, (Reported) LAST FILLED 09/05/2020 5 DAY SUPPLY Pantoprazole Sodium 40 Mg Tablet., 40 MG PO DAILY PRN for HEARTBURN, (Reported) Patient Home Medication List Home Medication List Reviewed: Yes Review of Systems Review of Systems Constitutional: no symptoms reported EENTM: no symptoms reported Respiratory: see HPI Cardiovascular: no symptoms reported Gastrointestinal: no symptoms reported Genitourinary: no symptoms reported : No Musculoskeletal: no symptoms reported Skin: no symptoms reported Psychiatric/Neurological: No Symptoms Reported Hematologic/Lymphatic: No Symptoms Reported Past Pesnfsg-Gnijmc-Fhxqmk Hx Past Med/Social Hx: Reviewed Nursing Past Med/Soc Hx Patient Social History Alcohol Use: Denies Use Recreational Drug Use: No Drug of Choice: MARIJUANA Type Used: Cigarettes 2nd Hand Smoke Exposure: Yes Contact w/Someone Who Travel: No Recent Infectious Disease Expo: No Recent Hopitalizations: No Physical Abuse: No Sexual Abuse: No Mistreated: No Fear: No Immunizations Up To Date Tetanus Booster (TDap): Less than 5yrs Seasonal Allergies Seasonal Allergies: No Past Medical History Surgeries: No Respiratory: Yes Asthma, COPD, Emphysema Cardiac: Yes High Cholesterol, Hypertension Neurological: No Female Reproductive Disorders: Polycystic Ovarian Dis Genitourinary: No Gastrointestinal: Yes Gastroesophageal Reflux Musculoskeletal: Yes (CARPEL TUNNEL) HEENT: No Cancer: No Psychosocial: Yes Anxiety, Depression Integumentary: No Blood Disorders: No Family Medical History Diabetes mellitus G8 BROTHER Physical Exam Vital Signs - First Documented 10/02/20 15:55 Temp 36.8 Pulse 88 Resp 30 B/P (MAP) 125/86 (99) Pulse Ox 89 O2 Delivery Room Air Capillary Refill : Less Than 3 Seconds Height: '" Weight: lbs. oz. kg; 34.00 BMI Method: General Appearance: WD/WN, moderate distress HEENT: PERRL/EOMI, normal ENT inspection Neck: normal inspection Respiratory: No crackles; wheezing, other (Prolonged expiratory phase) Cardiovascular: regular rate, rhythm, no edema, no murmur Gastrointestinal: non tender, soft Neurologic/Psychiatric: [employer] II-XII nml as tested, no motor/sensory deficits, alert, normal mood/affect Skin: normal color, warm/dry Progress/Results/Core Measures Suspected Sepsis Recent Fever Within 48 Hours: No Infection Criteria Present: None New/Unexplained Altered Menta: No Sepsis Screen: No Definite Risk SIRS Temperature: Pulse: 88 Respiratory Rate: 30 Laboratory Tests 10/02/20 16:15: White Blood Count 8.1 Blood Pressure 125 /86 Mean: 99 Laboratory Tests 10/02/20 16:15: Platelet Count 279 10/02/20 17:05: Creatinine 0.72, Total Bilirubin 0.2 Results/Orders Lab Results Laboratory Tests Test 10/02/20 16:15 10/02/20 17:05 Range/Units White Blood Count 8.1 4.3-11.0 10^3/uL Red Blood Count 4.21 3.80-5.11 10^6/uL Hemoglobin 13.0 11.5-16.0 g/dL Hematocrit 39 35-52 % Mean Corpuscular Volume 93 80-99 fL Mean Corpuscular Hemoglobin 31 25-34 pg Mean Corpuscular Hemoglobin Concent 33 32-36 g/dL Red Cell Distribution Width 12.9 10.0-14.5 % Platelet Count 279 130-400 10^3/uL Mean Platelet Volume 9.6 9.0-12.2 fL Immature Granulocyte % (Auto) 0 % Neutrophils (%) (Auto) 51 42-75 % Lymphocytes (%) (Auto) 28 12-44 % Monocytes (%) (Auto) 9 0-12 % Eosinophils (%) (Auto) 12 H 0-10 % Basophils (%) (Auto) 1 0-10 % Neutrophils # (Auto) 4.1 1.8-7.8 10^3/uL Lymphocytes # (Auto) 2.2 1.0-4.0 10^3/uL Monocytes # (Auto) 0.7 0.0-1.0 10^3/uL Eosinophils # (Auto) 1.0 H 0.0-0.3 10^3/uL Basophils # (Auto) 0.0 0.0-0.1 10^3/uL Immature Granulocyte # (Auto) 0.0 0.0-0.1 10^3/uL D-Dimer 0.32 0.00-0.49 UG/ML Serum Test, Qualitative NEGATIVE NEGATIVE Coronavirus 2019 (SANDI) Negative Negative Sodium Level 137 135-145 MMOL/L Potassium Level 3.8 3.6-5.0 MMOL/L Chloride Level 104 98-107 MMOL/L Carbon Dioxide Level 26 21-32 MMOL/L Anion Gap 7 5-14 MMOL/L Blood Urea Nitrogen 11 7-18 MG/DL Creatinine 0.72 0.60-1.30 MG/DL Estimat Glomerular Filtration Rate > 60 BUN/Creatinine Ratio 15 Glucose Level 111 H 70-105 MG/DL Calcium Level 8.4 L 8.5-10.1 MG/DL Corrected Calcium 8.8 8.5-10.1 MG/DL Total Bilirubin 0.2 0.1-1.0 MG/DL Aspartate Amino Transf (AST/SGOT) 15 5-34 U/L Alanine Aminotransferase (ALT/SGPT) 18 0-55 U/L Alkaline Phosphatase 63 40-136 U/L Lactate Dehydrogenase 166 125-220 U/L C-Reactive Protein High Sensitivity 0.78 H 0.00-0.50 MG/DL Total Protein 6.2 L 6.4-8.2 GM/DL Albumin 3.5 3.2-4.5 GM/DL Procalcitonin 0.03 <0.10 NG/ML Micro Results Microbiology 10/02/20 Influenza Types A,B Antigen (BRIAN) - Final, Complete My Orders Orders - BENJAMIN CAMARENA MD Albuterol Inhaler (Ventolin Hfa) (10/02/20 18:00) Albuterol Inhaler (Ventolin Hfa) (10/02/20 16:06) Ed Iv/Invasive Line Start (10/02/20 16:20) Ns Iv 1000 Ml (Sodium Chloride 0.9%) (10/02/20 16:20) Methylprednisolone Sod Succ (Solu-Medrol (10/02/20 16:30) Magnesium 1 Gm/100 Ml Ivpb (Magnesium Gallardo (10/02/20 16:30) Albuterol/Ipra Inhalation Soln (Duoneb I (10/02/20 16:30) Svn Small Volume Nebulizer (10/02/20 16:20) Cbc With Automated Diff (10/02/20 16:22) Comprehensive Metabolic Panel (10/02/20 16:22) Fibrin Degradation Products (10/02/20 16:22) Procalcitonin (Pct) (10/02/20 16:22) Hs C Reactive Protein (10/02/20 16:22) LDH (10/02/20 16:22) Influenza A And B Antigens (10/02/20 16:22) Hcg,Qualitative Serum (10/02/20 16:22) Covid 19 Inhouse Test (10/02/20 16:22) Chest 1 View, Ap/Pa Only (10/02/20 16:43) Magnesium 1 Gm/100 Ml Ivpb (Magnesium Gallardo (10/02/20 18:30) Arterial Blood Gas (10/02/20 18:23) BNP (10/02/20 18:23) Azithromycin Tablet (Zithromax Tablet) (10/02/20 18:30) Medications Given in ED Current Medications Medications Dose Ordered Sig/Shamar Route Start Time Stop Time Status Last Admin Dose Admin Albuterol/ Ipratropium 3 ml ONCE ONCE INH 10/02/20 16:30 10/02/20 16:31 DC 10/02/20 16:39 3 ML Magnesium Sulfate/ Dextrose 100 ml @ 100 mls/hr ONCE ONCE IV 10/02/20 16:30 10/02/20 17:29 DC 10/02/20 16:35 100 MLS/HR Methylprednisolone Sodium Succinate 125 mg ONCE ONCE IVP 10/02/20 16:30 10/02/20 16:31 DC 10/02/20 16:31 125 MG Vital Signs/I&O 10/02/20 15:55 Temp 36.8 Pulse 88 Resp 30 B/P (MAP) 125/86 (99) Pulse Ox 89 O2 Delivery Room Air Capillary Refill : Less Than 3 Seconds Blood Pressure Mean: 99 Progress Note #1: Progress Note Patient took a total of 8 puffs of albuterol from the inhaler. She was still having significant shortness of breath and wheezing. Solu-Medrol, IV fluids, IV magnesium, and a DuoNeb treatment were additionally ordered. She is continuing on 2 to 4 L of nasal cannula oxygen. Work-up is in progress. Rapid Covid was negative. D-dimer was negative. Progress Note #2: Time: 18:30 Progress Note Patient was still very tight and wheezy after the DuoNeb treatment, although she did states she felt improved. Oxygen was turned off and patient's oxygen saturation dropped to 91% on room air. Supplemental oxygen was restarted at 2 L/min. Chest x-ray noted some possible pulmonary congestion and some possible infiltrate. As a precaution a azithromycin was added to her treatments although her labs did not suggest pneumonia. A BNP was added to assess for pulmonary congestion. Dr. Pulliam was contacted and agrees to admission. She requested an ABG. An additional 1 g of magnesium was ordered for further treatment of asthma. Patient is being taken off of PUI precautions as her labs do not suggest coronavirus and her rapid test was negative. Diagnostic Imaging Diagonstic Imaging: Xray Plain Films/CT/US/NM/MRI: chest Comments Chest x-ray viewed by me and report reviewed. See report below: NAME: NICHELLE MCDONNELL [facility] REC#: [id number] PT STATUS: REG ER : 1975 PHYSICIAN: BENJAMIN CAMARENA MD ADMIT DATE: 10/02/20/ER Signed Date of Exam:10/02/20 CHEST 1 VIEW, AP/PA ONLY INDICATION: Decreased O2 saturation increasing cough with sputum. EXAMINATION: Single view chest, 10/02/2020. COMPARISON: 07/14/2020. FINDINGS: The heart is prominent. Pulmonary vasculature is slightly prominent as well. Bibasilar atelectasis noted with infiltrate not excluded. IMPRESSION: 1. Pulmonary vascular congestion. 2. Atelectasis versus early infiltrate at the lung bases. Dictated by: Dictated on workstation # [id number] Dict: 10/02/209 Trans: 10/02/201757 [facility] [id number] Interpreted by: GEORGE OCHOA MD Electronically signed by: GEORGE OCHOA MD 10/02/201757 Departure Communication (Admissions) Time/Spoke to Admitting Phy: 18:21 Dr. Joaquin Impression Primary Impression: Asthma exacerbation Qualified Codes: J45.901 - Unspecified asthma with (acute) exacerbation Additional Impression: Hypoxia Disposition: ADMITTED INPATIENT Condition: Improved Admissions Decision to Admit Reason: Admit from ER (General) Decision to Admit/Date: Oct 02, 2020 Time/Decision to Admit Time: 18:15 Departure-Patient Inst. Referrals: NETTE JOYCE (PCP/Family) Primary Care Physician BENJAMIN CAMARENA MD Oct 02, 2020 17:29
[2020-10-02 17:30] LABS: BILIRUBIN,TOTAL 0.2 MG/DL (0.1-1.0)
[2020-10-02 17:32] LABS: ALKALINE PHOSPHATASE 63 U/L (40-136); CREATININE SERUM 0.72 MG/DL (0.60-1.30); GFR ESTIMATED > 60
[2020-10-02 17:33] LABS: BUN/CREATININE RATIO 15
[2020-10-02 17:35] LABS: ALANINE AMINOTRANSFERASE 18 U/L (0-55)
--- NOTE | 2020-10-02 17:42 | Diagnostic Imaging Report ---
INDICATION: Decreased O2 saturation increasing cough with sputum. EXAMINATION: Single view chest, 10/02/2020. COMPARISON: 07/14/2020. FINDINGS: The heart is prominent. Pulmonary vasculature is slightly prominent as well. Bibasilar atelectasis noted with infiltrate not excluded. IMPRESSION: 1. Pulmonary vascular congestion. 2. Atelectasis versus early infiltrate at the lung bases. Dictated by: Dictated on workstation # [id number]
[2020-10-02] MEDS ORDERED: RT-ALBUTEROL INHALER HFA (VENTOLIN HFA) 18 GM IH SCH (18:00)
[2020-10-02] MEDS ORDERED: AZITHROMYCIN 250 MG TAB (ZITHROMAX) PO ONE (18:30)
[2020-10-02] MEDS ORDERED: BENZONATATE 100 MG (TESSALON) CAPSULE PO ONE (18:45)
[2020-10-02 19:04] LABS: ABG BASE EXCESS 1.5 MMOL/L (-2.5-2.5); ABG OXYGEN SATURATION 93 % (94-100); ABG PCO2 46 MMHG (35-45); ABG PH 7.37 (7.37-7.43); ABG PO2 66 MMHG (79-93); ABG TCO2 27.9 MMOL/L (21.0-31.0)
[2020-10-02 19:05] LABS: ALLENS TEST POSITIVE; INSPIRED O2 3 L; PATIENT TEMP 36.1; VENTILATOR NO
--- NOTE | 2020-10-02 19:56 | NUR ---
NICHELLE MCDONNELL admitted to room 416-1, with an admitting diagnosis of asthma exacerbation, hypoxia, on 10/02/20 from ed via , accompanied by staff.NICHELLE MCDONNELL introduced to surroundings, call light, bed controls, phone, TV, temperature control, lights, meal times, smoking policy, visitor policy, side rail policy, bathrooms and showers. Patient Rights given to patient in the handbook. NICHELLE MCDONNELL verbalizes understanding that [facility] is not responsible for the loss or damage to any personal effects or valuables that are kept in the patients possession during their hospitalization. This rn discussed pt's orders, pt agrees to the plan & denies any questions or concerns at this time. NICHELLE MCDONNELL verbalizes understanding of Interdisciplinary Patient Education. Patient and/or family were informed about the Rapid Response Team and its purpose.
[2020-10-02 20:10] VITALS: BP 118/69
[2020-10-02] MEDS ORDERED: NICOTINE PATCH REMOVAL TP PRN (20:15)
[2020-10-02] MEDS ORDERED: ACETAMINOPHEN 500 MG TAB (TYLENOL) PO PRN (20:15)
[2020-10-02] MEDS ORDERED: CATHETER FLUSH 10 ML SYR IV PRN (20:15)
[2020-10-02] MEDS: CATHETER FLUSH 10 ML SYR IV SCH (22:02)
[2020-10-02] MEDS: methylPREDNISolone 40 MG/ML (Solu-MEDROL) VIAL IV SCH (23:58)
[2020-10-02] MEDS: RT-ALBUTEROL INHALER HFA (VENTOLIN HFA) 18 GM IH SCH (23:58)
[2020-10-03] VITALS (8 sets, daily range): BP systolic 95–142; BP diastolic 55–70
[2020-10-03] MEDS ORDERED: RT-ALBUTEROL INHALER HFA (VENTOLIN HFA) 18 GM IH PRN (01:00)
[2020-10-03] MEDS: BENZONATATE 100 MG (TESSALON) CAPSULE PO PRN ×2 (01:47→09:59)
[2020-10-03] MEDS ORDERED: RT-ALBUTEROL INHALER HFA (VENTOLIN HFA) 18 GM IH SCH (02:00)
[2020-10-03] MEDS: RT-ALBUTEROL INHALER HFA (VENTOLIN HFA) 18 GM IH SCH ×2 (03:05→06:58)
--- NOTE | 2020-10-03 04:07 | NUR ---
2357-SCHEDULED ALBUTEROL INHALER GIVEN-RESPIRATIONS 20, HR 86, SAT 94%, 3L NC, PT HAVING WHEEZING BILATERALLY THROUGHOUT 0140-PT COUGHING REQUEST AIDEE ARCHIBALD 014-TESSALON PERLGUY GIVEN-SEE JAN 220-PT RESTING RESPIRATIONS EVEN NOT LABORED 304-SCHEDULED ALBUTEROL INHALER GIVEN-RESPIRATIONS 20, HR 78, SAT 93%, 3L NC, PT HAVING WHEEZING BILATERALLY THROUGHOUT
[2020-10-03] MEDS: CATHETER FLUSH 10 ML SYR IV SCH ×4 (05:55→23:04)
[2020-10-03] MEDS: methylPREDNISolone 40 MG/ML (Solu-MEDROL) VIAL IV SCH ×4 (05:55→23:04)
[2020-10-03 05:58] LABS: BASOPHILS % (AUTO) 0 % (0-10); EOSINOPHILS % (AUTO) 0 % (0-10); HEMATOCRIT 40 % (35-52); LYMPHOCYTES # (AUTO) 0.9 10^3/uL (1.0-4.0); LYMPHOCYTES % (AUTO) 10 % (12-44); MEAN CORPUSCULAR HEMOGLOBIN 31 pg (25-34); MEAN CORPUSCULAR HGB CONC 33 g/dL (32-36); MEAN CORPUSCULAR VOLUME 94 fL (80-99); MEAN PLATELET VOLUME 9.4 fL (9.0-12.2); MONOCYTES # (AUTO) 0.1 10^3/uL (0.0-1.0); MONOCYTES % (AUTO) 1 % (0-12); NEUTROPHILS # (AUTO) 7.8 10^3/uL (1.8-7.8); NEUTROPHILS % (AUTO) 89 % (42-75); PLATELET COUNT 265 10^3/uL (130-400); WHITE BLOOD COUNT 8.8 10^3/uL (4.3-11.0)
--- NOTE | 2020-10-03 05:58 | NUR ---
pt requesting to have breathing treatments changed to nebulizers-this rn informed RT Holly Gutierrez of this.
[2020-10-03 06:06] LABS: CHLORIDE 104 MMOL/L (98-107)
[2020-10-03 06:07] LABS: POTASSIUM 4.2 MMOL/L (3.6-5.0); SODIUM 137 MMOL/L (135-145)
[2020-10-03] MEDS: NICOTINE 21 MG (NICODERM) PATCH TD PRN (06:07)
[2020-10-03 06:08] LABS: CALCIUM 8.5 MG/DL (8.5-10.1); GLUCOSE 214 MG/DL (70-105)
[2020-10-03 06:10] LABS: CARBON DIOXIDE 22 MMOL/L (21-32)
[2020-10-03 06:12] LABS: CREATININE SERUM 0.72 MG/DL (0.60-1.30); GFR ESTIMATED > 60
[2020-10-03 06:13] LABS: BUN/CREATININE RATIO 14
[2020-10-03] MEDS ORDERED: RT-ALBUTEROL SULF 2.5 MG/3 ML PRE-MIX VIAL INH SCH (07:15)
--- NOTE | 2020-10-03 07:15 | NUR ---
0650-pt requesting breathing treatment and that this treatment be nebulized-this rn contacted Marlena MORAN who informed this rn that she was aware of the pt request 0705-Marlena RT informed this rn that this pt took the albuterol inhaler but will have nebulized treatments next time. she also informed this rn that the pt would like to have her home breathing treatments started. 0715-During rn shift report this rn informed the oncoming rn Gauri of pt request to get her home breathing treatments started
[2020-10-03] MEDS ORDERED: RT-ALBUTEROL SULF 2.5 MG/3 ML PRE-MIX VIAL INH PRN (07:30)
[2020-10-03] MEDS: AZITHROMYCIN 250 MG TAB (ZITHROMAX) PO SCH (07:32)
[2020-10-03] MEDS: ENOXAPARIN 40 MG/0.4 ML (LOVENOX) SYR SC SCH (09:14)
[2020-10-03] MEDS ORDERED: LORATADINE (CLARITIN) 10 MG TAB PO NR (09:45)
[2020-10-03] MEDS: RT-ALBUTEROL/IPRATROPIUM 3 ML (DUONEB) VIAL INH SCH ×4 (10:52→22:36)
--- NOTE | 2020-10-03 11:23 | History & Physical-Hospitalist ---
PEPITO RODGERS MED STUDENT 10/03/20 1123: History of Present Illness HPI/Chief Complaint CC- Low O2 sat Mrs. Delgado presented to the ED after finding out that she had an O2 saturation of 87 on room air at [facility]. She also had a productive cough. She is a known smoker and also has a history of asthma. On admission she received an Xray that shows pulmonary congestion. She is receiving albuterol, prednisone, and azithromycin. She states that she feels a lot better this morning but had trouble sleeping. She states that at home she usually has a breathing treatment every 4 hours and would like to be put back on them. She states that she was not given them last night and that is why she could not sleep. She does not use CPAP or BIPAP at home but states that she needs tested for sleep apnea. She ate breakfast with no difficulties, LBM 2 days ago. She is able to ambulate by herself. She is coughing up a lot of sputum. She denies any NVD, headaches, vision changes, new SOB, chest pain, constipation or diarrhea, new joint pain or rashes. Source: patient Exam Limitations: no limitations Date Seen 10/03/20 Time Seen by a Provider: 08:50 Attending Physician Adrianne Doty David M Pa Referring Physician Date of Admission Oct 02, 2020 at 19:17 Home Medications & Allergies Home Medications Reviewed patient Home Medication Reconciliation performed by pharmacy medication reconciliations control systems technician and/or nursing. Patients Allergies have been reviewed. Allergies Allergies Coded Allergies latex (Verified Allergy, Unknown, 10/03/20) Past Ixzfpak-Vkboqw-Hhznhf Hx Past Med/Social Hx: Reviewed Nursing Past Med/Soc Hx Patient Social History Alcohol Use: Denies Use Recreational Drug Use: No Drug of Choice: MARIJUANA Type Used: Cigarettes 2nd Hand Smoke Exposure: Yes Recent Foreign Travel: No Contact w/other who traveled: No Recent Hopitalizations: No Recent Infectious Disease Expo: No Immunizations Up To Date Tetanus Booster (TDap): Less than 5yrs Seasonal Allergies Seasonal Allergies: No Past Medical History Cardiac: High Cholesterol, Hypertension Female Reproductive Disorders: Polycystic Ovarian Dis Gastrointestinal: Gastroesophageal Reflux Psychosocial: Anxiety, Depression History of Blood Disorders: No Family History Diabetes mellitus G8 BROTHER Review of Systems Constitutional: no symptoms reported EENTM: no symptoms reported Respiratory: phlegm, short of breath (with exhertion) Cardiovascular: no symptoms reported Gastrointestinal: no symptoms reported Genitourinary: no symptoms reported : No Musculoskeletal: no symptoms reported Skin: no symptoms reported Psychiatric/Neurological: No Symptoms Reported Physical Exam Physical Exam Vital Signs Vital Signs - First Documented 10/02/20 10/02/20 10/03/20 15:55 19:35 00:49 Temp 36.8 Pulse 88 Resp 30 B/P (MAP) 125/86 (99) Pulse Ox 89 O2 Delivery Room Air O2 Flow Rate 2.00 FiO2 32 Capillary Refill : NONE Height, Weight, BMI Height: '" Weight: lbs. oz. kg; 34.85 BMI Method: General Appearance: No Apparent Distress, WD/WN Eyes: Bilateral Eye Normal Inspection, Bilateral Eye PERRL Neck: Full Range of Motion, Non Tender Respiratory: Chest Non Tender, No Accessory Muscle Use, Crackles, Wheezing (Noted in all verduzco bilaterally. ) Cardiovascular: Regular Rate, Rhythm, No Edema, No Gallop, No JVD, No Murmur, Normal Peripheral Pulses Gastrointestinal: Normal Bowel Sounds, Non Tender, Soft Rectal: Deferred Back: Normal Inspection Extremity: Normal Range of Motion, No Calf Tenderness, No Pedal Edema Neurologic/Psychiatric: Alert, Oriented x3 Skin: Normal Color, Warm/Dry Lymphatic: No Adenopathy Results Results/Procedures Labs Laboratory Tests 10/02/20 16:15 10/02/20 17:05 10/03/20 05:37 Patient resulted labs reviewed. Assessment/Plan Admission Diagnosis Status Asthmaticus Admission Status: Inpatient Order (span 2 midnights) Reason for Inpatient Admission: Low O2 saturation on RA, SOB Assessment and Plan Start regular breathing treatments for patient. daily labs CBC CMP Evaluate patients O2 status Continue current medications Discharge after improvement of condition and O2 status more stable Diagnosis/Problems Diagnosis/Problems (1) Smoker (2) Hypoxia Status: Acute (3) Asthma exacerbation Status: Acute Qualifiers: Asthma severity: unspecified severity Asthma persistence: unspecified Qualified Codes: J45.901 - Unspecified asthma with (acute) exacerbation Clinical Quality Measures DVT/VTE Risk/Contraindication: Risk Factor Score Per Nursin RFS Level Per Nursing on Admit: 4+=Very High Supervisory-Addendum Brief Verification & Attestation Participated in pt care: history, physical Personally performed: exam, history Care discussed with: other Procedures: n/a DOTY,ADRIANNE DO 10/04/20 0643: History of Present Illness HPI/Chief Complaint CC: Wheezing HPI: This is a 45yoWF clinic patient of [facility] who has asthma and continues to be a heavy smoker who presents to the ER with status asthmaticus. Patient still wheezing. Past Jllmcpm-Tdhqxr-Qqcdnp Hx Past Med/Social Hx: Reviewed Nursing Past Med/Soc Hx, Reviewed and Corrections made Family History Diabetes mellitus G8 BROTHER Review of Systems Constitutional: see HPI, malaise, weakness Respiratory: dyspnea on exertion, wheezing Physical Exam Physical Exam General Appearance: No Apparent Distress, Chronically ill Respiratory: Accessory Muscle Use, Wheezing (Noted in all verduzco bilaterally. ) Cardiovascular: Regular Rate, Rhythm Assessment/Plan Admission Diagnosis Assessment: Status asthmaticus SMoker Plan: IV steroids O2 Monitor closely Admission Status: Inpatient Order (span 2 midnights) Reason for Inpatient Admission: status asthmaticus Diagnosis/Problems Diagnosis/Problems (1) Asthma exacerbation Status: Acute Qualifiers: Asthma severity: unspecified severity Asthma persistence: unspecified Qualified Codes: J45.901 - Unspecified asthma with (acute) exacerbation (2) Smoker (3) Hypoxia Status: Acute Supervisory-Addendum Brief Verification & Attestation Participated in pt care: history, MDM, physical Personally performed: exam, history, MDM, supervision of care Care discussed with: Medical Student Procedures: n/a Results interpretation: Verified all documentation Verification and Attestation of Medical Student E/M Service A medical student performed and documented this service in my presence. I reviewed and verified all information documented by the medical student and made modifications to such information, when appropriate. I personally performed the physical exam and medical decision making. Adrianne Doty, Oct 04, 2020,06:43 PEPITO RODGERS MED STUDENT Oct 03, 2020 11:23 ADRIANNE DOTY DO Oct 04, 2020 06:43
[2020-10-03] MEDS: ADVAIR HFA 115/21 MCG INHALER 8 GM IH SCH ×2 (14:54→18:39)
[2020-10-03] MEDS ORDERED: PRAZ2CAP2 PO (14:54)
[2020-10-03] MEDS ORDERED: DULO60CA6 PO (14:54)
[2020-10-03] MEDS ORDERED: BREX2TAB PO (14:54)
[2020-10-03] MEDS ORDERED: FOLI200T11 PO (14:55)
[2020-10-03] MEDS ORDERED: GUAI600T43 PO (14:55)
[2020-10-03] MEDS ORDERED: CETI10TA49 PO (14:55)
--- NOTE | 2020-10-03 14:56 | NUR ---
SPOKE WITH THE PT, WENT THRU THE EXT MED HISTORY AND CALLED [facility] TO COMPLETE THE MED REC ACCORDING TO PT SHE TAKES REXULTI 2MG, HAD RECENTLY BEEN SWITCHED FROM LEXAPRO TO A DIFFERENT MEDICATION (COULDNT REMEMBER THE NAME) AND A NIGHTTIME MED TO HELP WITH SLEEP/NIGHTMARES. I SPOKE WITH ZACHARY AT [facility] AND SHE VERIFIED THE PT IS TAKING CYMBALTA 60MG, REXULTI 2MG AND PRAZOSIN 2MG- THEY ARE ALL DISPENSED FROM [facility] BUT SHE WAS NOT ABLE TO TELL ME WHEN THE PT LAST RECEIVED THEM. THE NURSE DID LET ME KNOW THAT SHE HAD AN APPT IN AUGUST AND PER THEIR STANDARD WOULD HAVE GOT THOSE MEDICATIONS AT THAT TIME.
[2020-10-03] MEDS ORDERED: MONTELUKAST 10 MG (SINGULAIR) TAB PO SCH (21:00)
[2020-10-04] VITALS (7 sets, daily range): BP systolic 106–138; BP diastolic 57–72
[2020-10-04] MEDS: RT-ALBUTEROL/IPRATROPIUM 3 ML (DUONEB) VIAL INH SCH ×6 (01:43→23:27)
[2020-10-04] MEDS: methylPREDNISolone 40 MG/ML (Solu-MEDROL) VIAL IV SCH ×4 (05:01→23:57)
[2020-10-04] MEDS: BENZONATATE 100 MG (TESSALON) CAPSULE PO PRN (05:25)
--- NOTE | 2020-10-04 06:51 | Progress Note - Hospitalist ---
Subjective HPI/CC On Admission Date Seen by Provider: Oct 04, 2020 Time Seen by Provider: 11:30 CC: Wheezing HPI: This is a 45yoWF clinic patient of [facility] who has asthma and continues to be a heavy smoker who presents to the ER with status asthmaticus. Patient still wheezing. Subjective/Events-last exam Patient improved Wheezing still present IV steroids required due to status asthmaticus Smoking cessation discussed Needs her "nightmare" meds so home meds were restarted No pain Review of Systems Pulmonary: Dyspnea Objective Exam Vital Signs Vital Signs Date Time Temp Pulse Resp B/P (MAP) Pulse Ox O2 Delivery O2 Flow Rate FiO2 10/04/20 18:23 98 Nasal Cannula 2.00 10/04/20 16:00 36.3 86 18 138/72 (94) 10/03/20 00:49 32 Capillary Refill : NONE General Appearance: No Apparent Distress, WD/WN, Chronically ill Respiratory: No Accessory Muscle Use, No Respiratory Distress, Decreased Breath Sounds, Wheezing Cardiovascular: Regular Rate, Rhythm, No Edema, No Gallop, No JVD, No Murmur, Normal Peripheral Pulses Neurologic/Psychiatric: Alert, Oriented x3, No Motor/Sensory Deficits, Normal Mood/Affect Results/Procedures Lab Laboratory Tests 10/04/20 07:55 Patient resulted labs reviewed. Assessment/Plan Assessment and Plan Assess & Plan/Chief Complaint Assessment: Status asthmaticus Smoker Leukocytosis from steroid effect Plan: Monitor O2 sats IV steroids ICS Nebs Diagnosis/Problems Diagnosis/Problems (1) Asthma exacerbation Status: Acute Qualifiers: Asthma severity: unspecified severity Asthma persistence: unspecified Qualified Codes: J45.901 - Unspecified asthma with (acute) exacerbation (2) Smoker (3) Hypoxia Status: Acute Clinical Quality Measures DVT/VTE Risk/Contraindication: Risk Factor Score Per Nursin RFS Level Per Nursing on Admit: 4+=Very High CESAR DOTY DO Oct 04, 2020 06:51
[2020-10-04] MEDS: ADVAIR HFA 115/21 MCG INHALER 8 GM IH SCH ×2 (07:08→18:22)
[2020-10-04] MEDS: ENOXAPARIN 40 MG/0.4 ML (LOVENOX) SYR SC SCH (08:00)
[2020-10-04] MEDS: AZITHROMYCIN 250 MG TAB (ZITHROMAX) PO SCH (08:00)
[2020-10-04 08:05] LABS: HEMOGLOBIN 12.8 g/dL (11.5-16.0); MEAN PLATELET VOLUME 9.2 fL (9.0-12.2); WHITE BLOOD COUNT 20.8 10^3/uL (4.3-11.0)
[2020-10-04 08:30] LABS: ALANINE AMINOTRANSFERASE 19 U/L (0-55); ALBUMIN 3.7 GM/DL (3.2-4.5); ALKALINE PHOSPHATASE 62 U/L (40-136); BILIRUBIN,TOTAL 0.2 MG/DL (0.1-1.0); BUN/CREATININE RATIO 17; CALCIUM 8.9 MG/DL (8.5-10.1); CARBON DIOXIDE 25 MMOL/L (21-32); CHLORIDE 106 MMOL/L (98-107); CREATININE SERUM 0.66 MG/DL (0.60-1.30); GFR ESTIMATED > 60; GLUCOSE 124 MG/DL (70-105); POTASSIUM 4.1 MMOL/L (3.6-5.0); SODIUM 140 MMOL/L (135-145); TOTAL PROTEIN 6.7 GM/DL (6.4-8.2)
[2020-10-04] MEDS ORDERED: LORATADINE (CLARITIN) 10 MG TAB PO SCH (09:00)
[2020-10-04] MEDS: NICOTINE 21 MG (NICODERM) PATCH TD PRN (09:06)
[2020-10-04] MEDS: HYDROCODONE/CHLOR 10MG/5 ML (TUSSIONEX SUSP) 5ML UDC PO SCH ×2 (13:22→19:30)
[2020-10-04] MEDS: CATHETER FLUSH 10 ML SYR IV SCH ×2 (13:22→19:31)
[2020-10-04] MEDS ORDERED: NON-FORMULARY MEDICATION 1 EA EA (Prazosin HCl 2 MG) PO SCH (21:00)
[2020-10-04] MEDS ORDERED: MONTELUKAST 10 MG (SINGULAIR) TAB PO SCH (21:00)
[2020-10-04] MEDS ORDERED: NON-FORMULARY MEDICATION 1 EA EA (Brexpiprazole (Rexulti) 2 MG) PO SCH (21:00)
[2020-10-05] MEDS: RT-ALBUTEROL/IPRATROPIUM 3 ML (DUONEB) VIAL INH SCH ×3 (02:22→10:49)
[2020-10-05 04:08] VITALS: BP 98/52
[2020-10-05] MEDS: BENZONATATE 100 MG (TESSALON) CAPSULE PO PRN (04:27)
[2020-10-05] MEDS: methylPREDNISolone 40 MG/ML (Solu-MEDROL) VIAL IV SCH ×2 (05:28→12:27)
[2020-10-05] MEDS: CATHETER FLUSH 10 ML SYR IV SCH ×2 (05:28→10:09)
[2020-10-05 07:38] VITALS: BP 110/64
[2020-10-05] MEDS ORDERED: NON-FORMULARY MEDICATION 1 EA EA (Mometasone/Formoterol (Dulera 200 Mcg/5 Mcg Inhaler) 2 P INH SCH (09:00)
[2020-10-05] MEDS ORDERED: LORATADINE (CLARITIN) 10 MG TAB PO SCH (09:00)
[2020-10-05] MEDS ORDERED: PANTOPRAZOLE 40 MG (PROTONIX) TAB PO SCH (09:00)
[2020-10-05] MEDS ORDERED: DULoxetine 30 MG (CYMBALTA) CAP PO SCH (09:00)
[2020-10-05] MEDS: AZITHROMYCIN 250 MG TAB (ZITHROMAX) PO SCH (09:08)
[2020-10-05] MEDS: ENOXAPARIN 40 MG/0.4 ML (LOVENOX) SYR SC SCH (09:08)
[2020-10-05] MEDS: NICOTINE 21 MG (NICODERM) PATCH TD PRN (09:08)
[2020-10-05] MEDS: HYDROCODONE/CHLOR 10MG/5 ML (TUSSIONEX SUSP) 5ML UDC PO SCH (09:08)
[2020-10-05] MEDS: ADVAIR HFA 115/21 MCG INHALER 8 GM IH SCH (10:50)
[2020-10-05 11:27] VITALS: BP 130/69
[2020-10-05] MEDS ORDERED: PRED10TA22 PO (12:57)
[2020-10-05] MEDS ORDERED: AZIT250T12 PO (12:57)
--- NOTE | 2020-10-05 12:58 | Discharge Summary ---
Discharge Summary Hospital Course Was the Problem List Reviewed?: Yes Problems/Dx: (1) Asthma exacerbation Status: Acute Qualifiers: Qualified Codes: J45.901 - Unspecified asthma with (acute) exacerbation (2) Smoker (3) Hypoxia Status: Acute Hospital Course Date of Admission: Oct 02, 2020 at 19:17 Admission Diagnosis : Family Physician/Provider: Carroll Ochoa Date of Discharge: 10/05/20 Discharge Diagnosis: status asthmaticus, smoker Hospital Course: Uneventful course after admitted for status asthmaticus she required high dose of steroids and Nebs and O2 and monitored closely and was found to be improved and not in need of home O2. Labs and Pending Lab Test: Microbiology 10/02/20 Influenza Types A,B Antigen (BRIAN) - Final, Complete Home Meds Active Prednisone 10 Mg Tab.ds.pk 10 Mg PO DAILY Take 6 tabs(60mg)daily,decrease by 1 tab(10MG)daily. Azithromycin 250 Mg Tablet 250 Mg PO DAILY Reported Zyrtec (Cetirizine HCl) 10 Mg Tablet 10 Mg PO DAILY Mucinex (Guaifenesin) 600 Mg Tab.er.12h 600 Mg PO Q12H PRN Women's Multivitamin Gummies (Folic Acid/Multivit-Minerals) 200 Mcg Tab.chew 200 Mcg PO DAILY Prazosin HCl 2 Mg Capsule 2 Mg PO HS Cymbalta (Duloxetine HCl) 60 Mg Capsule.dr 60 Mg PO DAILY Rexulti (Brexpiprazole) 2 Mg Tablet 2 Mg PO HS Protonix (Pantoprazole Sodium) 40 Mg Tablet.dr 40 Mg PO DAILY Montelukast Sodium 10 Mg Tablet 10 Mg PO DAILY Iprat-Albut 0.5-3(2.5) mg/3 ml (Ipratropium/Albuterol Sulfate) 3 Ml Ampul.neb 3 Ml IH Q4H PRN Dulera 200 Mcg/5 Mcg Inhaler (Mometasone/Formoterol) 13 Gm Hfa.aer.ad 2 Puff INH DAILY RINSE MOUTH AFTER EACH USE Proair Hfa (Albuterol Sulfate) 1 Puff Puff 2 Puff INH QID PRN Assessment/Pt Instructions [facility] this week Discharge Instructions Pneumonia Vaccine Order Indica: Yes Discharge Physical Examination Vital Signs Vital Signs Date Time Temp Pulse Resp B/P (MAP) Pulse Ox O2 Delivery O2 Flow Rate FiO2 10/05/20 11:27 36.0 84 18 130/69 (89) 100 Room Air 10/05/20 10:50 1.00 10/03/20 00:49 32 General Appearance: No Apparent Distress, WD/WN Respiratory: Wheezing (subtle but improved) Allergies: Coded Allergies: latex (Verified Allergy, Unknown, 10/03/20) Discharge Summary Date of Admission Oct 02, 2020 at 19:17 Date of Discharge Discharge Date: Oct 05, 2020 Admission Diagnosis Assessment: Status asthmaticus SMoker Plan: IV steroids O2 Monitor closely Discharge Diagnosis Assessment: Status asthmaticus Smoker Leukocytosis from steroid effect Plan: Monitor O2 sats IV steroids ICS Nebs (1) Asthma exacerbation Status: Acute Qualifiers: Qualified Codes: J45.901 - Unspecified asthma with (acute) exacerbation (2) Smoker (3) Hypoxia Status: Acute Clinical Quality Measures DVT/VTE Risk/Contraindication: Risk Factor Score Per Nursin RFS Level Per Nursing on Admit: 4+=Very High CESAR DOTY DO Oct 05, 2020 12:58
--- NOTE | 2020-10-05 13:31 | NUR ---
PT DOES NOT QUALIFY FOR 02. PT NEVER DESATURATED BELOW 92%. Addendum: 10/05/20 at 1331 by JAYJAY DOBSON RT Amended: Links added.
--- NOTE | 2020-10-05 13:56 | NUR ---
RX AND INST AND VERBALIZED UNDERSTANDING. AWAITING CLOTHES FOR DC.
--- NOTE | 2020-10-05 14:39 | NUR ---
PORTABLE O2 HERE. REQUESTS VIA [facility]. FAXED FACE SHEET AND ORDER. COPIES LEFT ON DESK FOR F/U IN AM. Addendum: 10/05/20 at 1440 by LANI GAINES RN NELLIE SORENSEN
--- NOTE | 2020-10-05 14:40 | NUR ---
DC'D PER WC TO FRONT LOBBY FOR DC TO HOME.
== END 2020-10-05 14:40 | disposition home or self-care (01) | DRG 203 ==
LOC: EDUNIT# 15:55 → ER 15:56 → 4TH 19:17
PROVIDERS: ADMIT Internal Medicine; ATTEND Internal Medicine
DX: J45.902 Unspecified asthma with status asthmaticus (principal); F17.210 Nicotine dependence, cigarettes, uncomplicated; R09.02 Hypoxemia; E78.00 Pure hypercholesterolemia, unspecified; I10 Essential (primary) hypertension; K21.9 Gastro-esophageal reflux disease without esophagitis; F41.9 Anxiety disorder, unspecified; F32.9 Major depressive disorder, single episode, unspecified; J43.9 Emphysema, unspecified; D72.829 Elevated white blood cell count, unspecified; T38.0X5A Adverse effect of glucocorticoids and synthetic analogues, initial encounter
CPT/HCPCS: 36415; 71045; 80048; 80053; 82805; 83615; 83880; 84145; 84703; 85025; 85027; 85379; 86141; 87635; 87804; 94640; 94760; 94761; 96361; 96365; 96367; 96375

== ENCOUNTER → 2020-10-17 | Outpatient (CLI) | payer SELFPAY ==
[~2020-10-17] MED LIST changes: +AZIT250T12 PO; +BREX2TAB PO; +CETI10TA49 PO; +DULO60CA6 PO; +FOLI200T11 PO; +GUAI600T43 PO; -MONT10TA26 PO; +MONT10TA97 PO; +PRAZ2CAP2 PO; +PRED10TA22 PO; +RT-ALBUTEROL SULF 2.5 MG/3 ML PRE-MIX VIAL INH ONE
== END ==
LOC: RT 12:50
PROVIDERS: ATTEND Nurse Practitioner Family
DX: R94.2 Abnormal results of pulmonary function studies (principal); Z20.828 Contact with and (suspected) exposure to other viral communicable diseases
CPT/HCPCS: 94060; 94726; 94729

== ENCOUNTER → 2021-03-17 | Outpatient (CLI) | payer SELFPAY ==
[~2021-03-17] MED LIST changes: +MONT10TA32 PO; -MONT10TA97 PO; -RT-ALBUTEROL SULF 2.5 MG/3 ML PRE-MIX VIAL INH ONE
--- NOTE | 2021-03-17 10:00 | Diagnostic Imaging Report ---
PROCEDURE: CT chest without contrast. TECHNIQUE: Multiple contiguous axial images were obtained through the chest without the use of intravenous contrast. Auto Exposure Controls were utilized during the CT exam to meet ALARA standards for radiation dose reduction. INDICATION: COPD, asthma, cough, chest mass. COMPARISON: No relevant comparison. FINDINGS: No lung mass or suspicious pulmonary nodule. There is very slight linear subsegmental atelectasis versus scarring in the right middle lobe and anteroinferiorly at the right lung base. No features suggestive of pneumonia. No thoracic lymphadenopathy. No pleural or pericardial effusion. The aorta is nonaneurysmal. No acute or suspect soft tissue or osseous chest wall pathology. The visualized upper abdomen is nonacute. IMPRESSION: No mass, infiltrate, or acute appearing abnormality. Slight scarring versus atelectasis in the right middle lobe. The lungs are otherwise clear. Dictated by: Dictated on workstation # [id number]
== END ==
LOC: RAD 08:52
PROVIDERS: ATTEND Nurse Practitioner Family
DX: J44.9 Chronic obstructive pulmonary disease, unspecified (principal); R91.1 Solitary pulmonary nodule
CPT/HCPCS: 71250

== ENCOUNTER → 2021-07-29 | Outpatient (CLI) | payer OTHER ==
[~2021-07-29] MED LIST changes: +RT-ALBUTEROL SULF 2.5 MG/3 ML PRE-MIX VIAL INH ONE; -SULF1TAB35 PO; +SULF1TAB38 PO
== END ==
LOC: RT 08:00
PROVIDERS: ATTEND Family Medicine
DX: Z02.71 Encounter for disability determination (principal); J44.9 Chronic obstructive pulmonary disease, unspecified
CPT/HCPCS: 94060

== ENCOUNTER → 2021-10-16 | Outpatient (CLI) | payer OTHER ==
[~2021-10-16] MED LIST changes: -DULO60CA6 PO; +DULO60CA7 PO; +MONT-40 PO; -MONT10TA32 PO; -RT-ALBUTEROL SULF 2.5 MG/3 ML PRE-MIX VIAL INH ONE
--- NOTE | 2021-10-16 13:08 | Diagnostic Imaging Report ---
Indication: Neck pain. TIME OF EXAM: 10:58 AM 3 views cervical spine show reversal of normal cervical lordotic curvature. There is significant degenerative disc disease C5-C6 and C6-C7 levels, with disc space narrowing and marginal osteophyte formation. There is minimal anterolisthesis C4 on C5. Prevertebral tissues are normal. No fractures are seen. Odontoid appears intact. IMPRESSION: Cervical spondylosis with reversal of normal cervical curvature. No acute bony abnormalities detected. Dictated by: Dictated on workstation # [id number]
--- NOTE | 2021-10-16 13:09 | Diagnostic Imaging Report ---
EXAMINATION: Lumbar spine, 10/16/2021. HISTORY: Pain and fluid buildup. FINDINGS: Three views of the lumbar spine. There is normal height of the vertebral bodies with minimal grade 1 anterolisthesis at L4-L5. There is intervertebral disc space narrowing at L4-L5 and L5-S1 with adjacent facet hypertrophy. No acute osseous abnormality is appreciated. Soft tissues are unremarkable. IMPRESSION: 1. Degenerative findings with no acute osseous abnormality. Dictated by: Dictated on workstation # [id number]
== END ==
LOC: RAD 09:53
PROVIDERS: ATTEND Family Medicine
DX: Z02.71 Encounter for disability determination (principal); M47.812 Spondylosis without myelopathy or radiculopathy, cervical region; M47.816 Spondylosis without myelopathy or radiculopathy, lumbar region
CPT/HCPCS: 72040; 72100

== ENCOUNTER 2022-05-28 09:36 | Emergency (ER) | payer SELFPAY ==
[~2022-05-28] VITALS: Ht 167 cm; Wt 128.0 kg
[2022-05-28] MEDS ORDERED: methylPREDNISolone 125 MG (Solu-MEDROL) VIAL IVP ONE (10:00)
--- NOTE | 2022-05-28 10:14 | ED Respiratory ---
General Chief Complaint: Respiratory Problems Stated Complaint: SOB Nursing Triage Note: arrives to room 9 via ems. iv in [address], o2 in pace with duoneb per ems. patient began having sob this am when she woke up. states he has a hx of copd. Source: patient Exam Limitations: no limitations History of Present Illness Date Seen by Provider: May 28, 2022 Time Seen by Provider: 09:31 Initial Comments Patient to ER by EMS from home with chief complaint of shortness of air. She took one of her duo nebs and still satting 88 to 89%. She has a history of COPD smoked since she was [age] years old and uses methamphetamines with her last use being about 1 to 2 weeks ago. She also uses cannabis. She denies any diarrhea or constipation abdominal pain chest pain. She does have some productive clear sputum. No history of COVID vaccination. Does not use oxygen at baseline. She also has a history of asthma. Allergies and Home Medications Allergies Coded Allergies: latex (Verified Allergy, Unknown, 10/03/20) Patient Home Medication List Home Medication List Reviewed: Yes Albuterol Sulfate (Proair Hfa) 1 Puff Puff, 2 PUFF INH QID PRN for SHORTNESS OF BREATH, (Reported) Entered as Reported by: TONI ALEXANDRE on 09/08/20 1420 Azithromycin (Azithromycin) 250 Mg Tablet, 250 MG PO DAILY Prescribed by: CESAR DOTY on 10/05/20 1257 Azithromycin (Azithromycin) 250 Mg Tablet, 250 MG PO UD Prescribed by: HANNY TEMPLE on 05/28/22 1135 Brexpiprazole (Rexulti) 2 Mg Tablet, 2 MG PO HS, (Reported) Entered as Reported by: LORRAINE CLEMENTE on 10/03/20 1454 Cetirizine HCl (Zyrtec) 10 Mg Tablet, 10 MG PO DAILY, (Reported) Entered as Reported by: LORRAINE CLEMENTE on 10/03/20 1455 Duloxetine HCl (Cymbalta) 60 Mg Capsule.dr, 60 MG PO DAILY, (Reported) Entered as Reported by: LORRAINE CLEMENTE on 10/03/20 1454 Folic Acid/Multivit-Minerals (Women's Multivitamin Gummies) 200 Mcg Tab.chew, 200 MCG PO DAILY, (Reported) Entered as Reported by: LORRAINE CLEMENTE on 10/03/20 1455 Guaifenesin (Mucinex) 600 Mg Tab.er.12h, 600 MG PO Q12H PRN for CONGESTION, (Reported) Entered as Reported by: LORRAINE CLEMENTE on 10/03/20 1455 Ipratropium/Albuterol Sulfate (Iprat-Albut 0.5-3(2.5) mg/3 ml) 3 Ml Ampul.neb, 3 ML IH Q4H PRN for SHORTNESS OF BREATH, (Reported) Entered as Reported by: TONI ALEXANDRE on 09/08/20 1420 Methylprednisolone (Methylprednisolone Dose Pack) 4 Mg Tab.ds.pk, 4 MG PO UD Prescribed by: HANNY TEMPLE on 05/28/22 1135 Mometasone/Formoterol (Dulera 200 Mcg/5 Mcg Inhaler) 13 Gm Hfa.aer.ad, 2 PUFF INH DAILY, (Reported) Entered as Reported by: TONI ALEXANDRE on 09/08/20 1420 Montelukast Sodium (Montelukast Sodium) 10 Mg Tablet, 10 MG PO DAILY, (Reported) Entered as Reported by: TONI ALEXANDRE on 09/08/20 1533 Pantoprazole Sodium (Protonix) 40 Mg Tablet.dr, 40 MG PO DAILY, (Reported) Entered as Reported by: TONI ALEXANDRE on 09/08/20 153 Prazosin HCl (Prazosin HCl) 2 Mg Capsule, 2 MG PO HS, (Reported) Entered as Reported by: LORRAINE CLEMENTE on 10/03/20 1454 Prednisone (Prednisone) 10 Mg Tab.ds.pk, 10 MG PO DAILY Prescribed by: CESAR DOTY on 10/05/20 1257 Review of Systems Review of Systems Constitutional: No chills, No diaphoresis EENTM: No ear discharge, No ear pain Respiratory: cough, phlegm, short of breath, wheezing Cardiovascular: No edema, No Hx of Intervention, No palpitations Gastrointestinal: No abdominal pain, No constipation, No diarrhea, No nausea Genitourinary: No discharge, No dysuria Musculoskeletal: No back pain, No joint pain All Other Systems Reviewed Negative Unless Noted: Yes Past Vewxlyq-Bmxzug-Vmguom Hx Patient Social History Tobacco Use?: Yes Tobacco type used: Cigarettes Smoking Status: Current Everyday Smoker Use of E-Cig and/or Vaping dev: No Substance use?: Yes Substance type: Methamphetamine, Marijuana Alcohol Use?: Yes Alcohol Frequency: Once in a while Pt feels they are or have been: No Immunizations Up To Date Tetanus Booster (TDap): Less than 5yrs First/Initial COVID19 Vaccinat: declined Seasonal Allergies Seasonal Allergies: No Past Medical History Surgeries: No Respiratory: Yes Asthma, COPD, Emphysema Cardiac: Yes High Cholesterol, Hypertension Neurological: No Last Menstrual Period: May 14, 2022 Female Reproductive Disorders: Polycystic Ovarian Dis Genitourinary: No Gastrointestinal: Yes Gastroesophageal Reflux Musculoskeletal: Yes (CARPEL TUNNEL) HEENT: No Cancer: No Psychosocial: Yes Anxiety, Depression Integumentary: No Blood Disorders: No Family Medical History Diabetes mellitus G8 BROTHER Physical Exam Vital Signs - First Documented 05/28/22 09:42 Temp 36.6 Pulse 83 Resp 16 B/P (MAP) 135/89 (104) Pulse Ox 90 O2 Delivery Room Air Capillary Refill : Height: '" Weight: lbs. oz. kg; 45.00 BMI Method: General Appearance: WD/WN, no apparent distress Eyes: Bilateral Eye Normal Inspection, Bilateral Eye PERRL, Bilateral Eye EOMI HEENT: PERRL/EOMI, normal ENT inspection, TMs normal, pharynx normal Neck: full range of motion, supple, normal inspection Respiratory: lungs clear, normal breath sounds, no respiratory distress, no accessory muscle use Cardiovascular: normal peripheral pulses, regular rate, rhythm, no edema Gastrointestinal: normal bowel sounds, non tender, soft Extremities: non-tender, normal capillary refill Neurologic/Psychiatric: alert, normal mood/affect, oriented x 3 Skin: normal color, warm/dry Progress/Results/Core Measures Suspected Sepsis SIRS Temperature: Pulse: 83 Respiratory Rate: 16 Laboratory Tests 05/28/22 09:50: White Blood Count 9.1 Blood Pressure 135 /89 Mean: 104 Laboratory Tests 05/28/22 09:50: Creatinine 0.70, Platelet Count 309, Total Bilirubin 0.4 Results/Orders Lab Results Laboratory Tests Test 05/28/22 09:50 Range/Units White Blood Count 9.1 4.3-11.0 10^3/uL Red Blood Count 4.21 3.80-5.11 10^6/uL Hemoglobin 12.1 11.5-16.0 g/dL Hematocrit 38 35-52 % Mean Corpuscular Volume 90 80-99 fL Mean Corpuscular Hemoglobin 29 25-34 pg Mean Corpuscular Hemoglobin Concent 32 32-36 g/dL Red Cell Distribution Width 14.2 10.0-14.5 % Platelet Count 309 130-400 10^3/uL Mean Platelet Volume 9.4 9.0-12.2 fL Immature Granulocyte % (Auto) 0 % Neutrophils (%) (Auto) 56 42-75 % Lymphocytes (%) (Auto) 28 12-44 % Monocytes (%) (Auto) 8 0-12 % Eosinophils (%) (Auto) 7 0-10 % Basophils (%) (Auto) 0 0-10 % Neutrophils # (Auto) 5.1 1.8-7.8 10^3/uL Lymphocytes # (Auto) 2.6 1.0-4.0 10^3/uL Monocytes # (Auto) 0.7 0.0-1.0 10^3/uL Eosinophils # (Auto) 0.7 H 0.0-0.3 10^3/uL Basophils # (Auto) 0.0 0.0-0.1 10^3/uL Immature Granulocyte # (Auto) 0.0 0.0-0.1 10^3/uL Blood Gas Puncture Site L WRIST Blood Gas Patient Temperature 98 Arterial Blood pH 7.38 7.37-7.43 Arterial Blood Partial Pressure CO2 50 H 35-45 MMHG Arterial Blood Partial Pressure O2 56 L 79-93 MMHG Arterial Blood HCO3 29 H 23-27 MMOL/L Arterial Blood Total CO2 30.1 21.0-31.0 MMOL/L Arterial Blood Oxygen Saturation 91 L 94-100 % Arterial Blood Base Excess 3.7 H -2.5-2.5 MMOL/L Juma Test YES-POS Blood Gas Ventilator Setting NO Blood Gas Inspired Oxygen RA Sodium Level 140 135-145 MMOL/L Potassium Level 4.0 3.6-5.0 MMOL/L Chloride Level 105 98-107 MMOL/L Carbon Dioxide Level 24 21-32 MMOL/L Anion Gap 11 5-14 MMOL/L Blood Urea Nitrogen 7 7-18 MG/DL Creatinine 0.70 0.60-1.30 MG/DL Estimat Glomerular Filtration Rate 109 BUN/Creatinine Ratio 10 Glucose Level 118 H 70-105 MG/DL Calcium Level 9.0 8.5-10.1 MG/DL Corrected Calcium 9.2 8.5-10.1 MG/DL Total Bilirubin 0.4 0.1-1.0 MG/DL Aspartate Amino Transf (AST/SGOT) 23 5-34 U/L Alanine Aminotransferase (ALT/SGPT) 26 0-55 U/L Alkaline Phosphatase 70 40-136 U/L C-Reactive Protein High Sensitivity 0.64 H 0.00-0.50 MG/DL Total Protein 6.6 6.4-8.2 GM/DL Albumin 3.7 3.2-4.5 GM/DL SARS-CoV-2 RNA (RT-PCR) Not Detected Not Detecte My Orders Orders - HANNY TEMPLE Arterial Blood Gas (05/28/22 09:53) Methylprednisolone Sod Succ (Solu-Medrol (05/28/22 10:00) Covid 19 Inhouse Test (05/28/22 09:53) Cbc With Automated Diff (05/28/22 09:53) Comprehensive Metabolic Panel (05/28/22 09:53) Hs C Reactive Protein (05/28/22 09:53) Sputum Culture (05/28/22 09:53) Chest 1 View, Ap/Pa Only (05/28/22 09:53) Acetaminophen Tablet (Tylenol Tablet) (05/28/22 10:30) Acetaminophen Tablet (Tylenol Tablet) (05/28/22 10:17) Medications Given in ED Current Medications Medications Dose Ordered Sig/Shamar Route Start Time Stop Time Status Last Admin Dose Admin Acetaminophen 1,000 mg ONCE ONCE PO 05/28/22 10:30 05/28/22 10:31 DC 05/28/22 10:20 1,000 MG Methylprednisolone Sodium Succinate 125 mg ONCE ONCE IVP 05/28/22 10:00 05/28/22 10:09 DC 05/28/22 10:20 125 MG Vital Signs/I&O 05/28/22 05/28/22 09:42 09:42 Temp 36.6 Pulse 83 Resp 16 B/P (MAP) 135/89 (104) Pulse Ox 90 O2 Delivery Room Air Capillary Refill : Blood Pressure Mean: 104 Progress Note : Time: 10:18 Progress Note Solu-Medrol, Tylenol for her tooth ache, on no oxygen she is satting 92% with good waveform and breathing about 16 breaths a minute. We will get a chest x- ray, ABG and labs. She has a septic vital signs with a heart rate in the 80s after her DuoNeb. Diagnostic Imaging Diagonstic Imaging: Xray Plain Films/CT/US/NM/MRI: chest Comments COPD. No consolidation or acute cardiopulmonary process. NAME: NICHELLE MCDONNELL [facility] REC#: [id number] PT STATUS: REG ER : 1975 PHYSICIAN: HANNY TEMPLE MD ADMIT DATE: 05/28/22/ER Draft Date of Exam:05/28/22 CHEST 1 VIEW, AP/PA ONLY Indication: Shortness of breath Frontal chest obtained at 11:21 a.m. and compared to 10/02/2020. Heart is mildly enlarged. There is no focal infiltrate or pneumothorax or pleural fluid. There is mild central vascular congestion. Impression: Mild cardiomegaly with central vascular congestion. No focal infiltrate or pleural fluid. Dictated on workstation # [id number] Dict: 05/28/22 1129 Trans: 05/28/22 1131 [facility] [id number] Interpreted by: KVNG LAU MD Electronically signed by: Reviewed: Reviewed by Me Departure Impression Primary Impression: COPD with exacerbation Disposition: 01 HOME, SELF-CARE Condition: Stable Departure-Patient Inst. Decision time for Depature: 11:32 Referrals: [facility] [place] (PCP) Primary Care Physician NETTE JOYCE (Family) Primary Care Physician Patient Instructions: Exacerbation of COPD Add. Discharge Instructions: Drink plenty of fluids. Medrol Dosepak take as prescribed. Use your breathing treatment every 4 hours as needed. Return to the ER for significantly worsening symptoms. Azithromycin 2 tablets today followed by 1 tablet every day afterwards until it is gone. All discharge instructions reviewed with patient and/or family. Voiced understanding. Scripts Methylprednisolone (Methylprednisolone Dose Pack) 4 Mg Tab.ds.pk 4 MG PO UD for 6 Days, #21 PKG 0 Refills PER DOSE PACK INSTRUCTIONS Prov: HANNY TEMPLE 05/28/22 Azithromycin (Azithromycin) 250 Mg Tablet 250 MG PO UD, #6 TAB 0 Refills TAKE 2 TABLETS ON DAY ONE THEN TAKE 1 TABLET DAILY FOR FOUR MORE DAYS Prov: HANNY TEMPLE 05/28/22 HANNY TEMPLE May 28, 2022 10:14
[2022-05-28] MEDS ORDERED: ACETAMINOPHEN 500 MG TAB (TYLENOL) ONE (10:17)
[2022-05-28 10:19] LABS: ABG BASE EXCESS 3.7 MMOL/L (-2.5-2.5); ABG OXYGEN SATURATION 91 % (94-100); ABG PCO2 50 MMHG (35-45); ABG PH 7.38 (7.37-7.43); ABG PO2 56 MMHG (79-93); ABG TCO2 30.1 MMOL/L (21.0-31.0); ALLENS TEST YES-POS; INSPIRED O2 RA; VENTILATOR NO
[2022-05-28 10:20] LABS: BASOPHILS % (AUTO) 0 % (0-10); EOSINOPHILS # (AUTO) 0.7 10^3/uL (0.0-0.3); EOSINOPHILS % (AUTO) 7 % (0-10); HEMATOCRIT 38 % (35-52); HEMOGLOBIN 12.1 g/dL (11.5-16.0); LYMPHOCYTES # (AUTO) 2.6 10^3/uL (1.0-4.0); LYMPHOCYTES % (AUTO) 28 % (12-44); MEAN CORPUSCULAR HEMOGLOBIN 29 pg (25-34); MEAN CORPUSCULAR HGB CONC 32 g/dL (32-36); MEAN CORPUSCULAR VOLUME 90 fL (80-99); MEAN PLATELET VOLUME 9.4 fL (9.0-12.2); MONOCYTES # (AUTO) 0.7 10^3/uL (0.0-1.0); MONOCYTES % (AUTO) 8 % (0-12); NEUTROPHILS # (AUTO) 5.1 10^3/uL (1.8-7.8); NEUTROPHILS % (AUTO) 56 % (42-75); PATIENT TEMP 98; PLATELET COUNT 309 10^3/uL (130-400); WHITE BLOOD COUNT 9.1 10^3/uL (4.3-11.0)
[2022-05-28 10:24] LABS: ALBUMIN 3.7 GM/DL (3.2-4.5)
[2022-05-28 10:26] LABS: TOTAL PROTEIN 6.6 GM/DL (6.4-8.2)
[2022-05-28 10:28] LABS: BILIRUBIN,TOTAL 0.4 MG/DL (0.1-1.0)
[2022-05-28 10:30] LABS: CREATININE SERUM 0.7 MG/DL (0.60-1.30)
[2022-05-28] MEDS ORDERED: ACETAMINOPHEN 500 MG TAB (TYLENOL) PO ONE (10:30)
--- NOTE | 2022-05-28 11:31 | Diagnostic Imaging Report ---
Indication: Shortness of breath Frontal chest obtained at 11:21 a.m. and compared to 10/02/2020. Heart is mildly enlarged. There is no focal infiltrate or pneumothorax or pleural fluid. There is mild central vascular congestion. Impression: Mild cardiomegaly with central vascular congestion. No focal infiltrate or pleural fluid. Dictated by: Dictated on workstation # [id number]
[2022-05-28] MEDS ORDERED: AZIT250T12 PO ×2 (11:35→12:21)
[2022-05-28] MEDS ORDERED: METH4TAB10 PO ×2 (11:35→12:21)
[2022-05-28 11:50] VITALS: BP 132/86
== END 2022-05-28 11:50 | disposition home or self-care (01) ==
LOC: EDUNIT# 09:36 → ER 09:39
DX: J43.9 Emphysema, unspecified (principal); F17.210 Nicotine dependence, cigarettes, uncomplicated; Z20.822 Contact with and (suspected) exposure to COVID-19; Z28.310 Unvaccinated for COVID-19
CPT/HCPCS: 36415; 71045; 80053; 82805; 85025; 86141; 87070; 87205; 87636

== ENCOUNTER 2022-07-06 16:10 | Emergency (ER) | payer SELFPAY ==
[~2022-07-06] VITALS: Ht 165 cm; Wt 107.0 kg
[~2022-07-06 16:10] MED LIST changes: +METH4TAB10 PO
--- NOTE | 2022-07-06 17:02 | ED Head Injury ---
General Chief Complaint: Head/Cervical Problems Stated Complaint: HEAD INJURY Nursing Triage Note: PT STATES SHE PASSED OUT EARLIER AND HIT HER HEAD ON HER COFFEE TABLE FROM A SITTING POSITION. NO CUTS ON HER HEAD, DENIES NECK PAIN. STATES THIS HAS HAPPENED OFF AND ON FOR OVER A YEAR AND SHE THINKS IT MAY BE BECAUSE OF HER ASTHMA, PT STILL SMOKES. [facility] TOLD HER SHE NEEDED TO COME HERE AND HAVE A CT OF HER HEAD Source: patient Exam Limitations: no limitations History of Present Illness Date Seen by Provider: Jul 06, 2022 Time Seen by Provider: 17:02 Initial Comments This is a 47-year-old female who presented to the ER with her health worker for concerns of injury to her head and nose. States that she passed out from a sitting position and fell forward hitting her face and nose on coffee table. States she has been having fainting episodes for over a year but has not discussed these with her doctor. States she will start shaking "all over" and then pass out. States she will remain unconscious for unknown length of time. States her episodes have never been witnessed by anyone other than her dog because she lives alone and has no one. She has follow up with her PCP to discuss symptoms. Allergies and Home Medications Allergies Coded Allergies: latex (Verified Allergy, Unknown, 10/03/20) Patient Home Medication List Home Medication List Reviewed: Yes Albuterol Sulfate (Proair Hfa) 1 Puff Puff, 2 PUFF INH QID PRN for SHORTNESS OF BREATH, (Reported) Entered as Reported by: TONI ALEXANDRE on 09/08/20 1420 Azithromycin (Azithromycin) 250 Mg Tablet, 250 MG PO DAILY Prescribed by: CESAR DOTY on 10/05/20 1257 Azithromycin (Azithromycin) 250 Mg Tablet, 250 MG PO UD Prescribed by: HANNY TEMPLE on 05/28/22 1221 Brexpiprazole (Rexulti) 2 Mg Tablet, 2 MG PO HS, (Reported) Entered as Reported by: LORRAINE CLEMENTE on 10/03/20 1454 Cetirizine HCl (Zyrtec) 10 Mg Tablet, 10 MG PO DAILY, (Reported) Entered as Reported by: LORRAINE CLEMENTE on 10/03/20 1455 Duloxetine HCl (Cymbalta) 60 Mg Capsule.dr, 60 MG PO DAILY, (Reported) Entered as Reported by: LORRAINE CLEMENTE on 10/03/20 1454 Folic Acid/Multivit-Minerals (Women's Multivitamin Gummies) 200 Mcg Tab.chew, 200 MCG PO DAILY, (Reported) Entered as Reported by: LORRAINE CLEMENTE on 10/03/20 1455 Guaifenesin (Mucinex) 600 Mg Tab.er.12h, 600 MG PO Q12H PRN for CONGESTION, (Reported) Entered as Reported by: LORRAINE CLEMENTE on 10/03/20 1455 Ipratropium/Albuterol Sulfate (Iprat-Albut 0.5-3(2.5) mg/3 ml) 3 Ml Ampul.neb, 3 ML IH Q4H PRN for SHORTNESS OF BREATH, (Reported) Entered as Reported by: TONI ALEXANDRE on 09/08/20 1420 Methylprednisolone (Methylprednisolone Dose Pack) 4 Mg Tab.ds.pk, 4 MG PO UD Prescribed by: HANNY TEMPLE on 05/28/22 1221 Mometasone/Formoterol (Dulera 200 Mcg/5 Mcg Inhaler) 13 Gm Hfa.aer.ad, 2 PUFF INH DAILY, (Reported) Entered as Reported by: TONI ALEXANDRE on 09/08/20 1420 Montelukast Sodium (Montelukast Sodium) 10 Mg Tablet, 10 MG PO DAILY, (Reported) Entered as Reported by: TONI ALEXANDRE on 09/08/20 153 Pantoprazole Sodium (Protonix) 40 Mg Tablet.dr, 40 MG PO DAILY, (Reported) Entered as Reported by: TONI ALEXANDRE on 09/08/20 153 Prazosin HCl (Prazosin HCl) 2 Mg Capsule, 2 MG PO HS, (Reported) Entered as Reported by: LORRAINE CLEMENTE on 10/03/20 145 Prednisone (Prednisone) 10 Mg Tab.ds.pk, 10 MG PO DAILY Prescribed by: CESAR DOTY on 10/05/20 1257 Review of Systems Review of Systems Constitutional: no symptoms reported Eyes: No Symptoms Reported Ears, Nose, Mouth, Throat: nose pain Respiratory: no symptoms reported Cardiovascular: no symptoms reported Gastrointestinal: no symptoms reported Genitourinary: no symptoms reported Musculoskeletal: no symptoms reported Skin: no symptoms reported Psychiatric/Neurological: Anxiety Endocrine: No Symptoms Reported Hematologic/Lymphatic: No Symptoms Reported Past Mfgyaak-Rlojum-Nxzrmh Hx Patient Social History Tobacco Use?: Yes Tobacco type used: Cigarettes Smoking Status: Current Everyday Smoker Substance use?: Yes Substance type: Methamphetamine, Marijuana Alcohol Use?: Yes Alcohol type: Hard Liquor Alcohol Frequency: Once in a while Immunizations Up To Date Tetanus Booster (TDap): Less than 5yrs First/Initial COVID19 Vaccinat: declined Second COVID19 Vaccination Jacques: declined Third COVID19 Vaccination Date: declined Seasonal Allergies Seasonal Allergies: No Past Medical History Surgery/Hospitalization HX: ASTHMA, HYPERTENSION, COPD Surgeries: No Respiratory: Yes Asthma, COPD, Emphysema Cardiac: Yes High Cholesterol, Hypertension Neurological: No Female Reproductive Disorders: Polycystic Ovarian Dis Genitourinary: No Gastrointestinal: Yes Gastroesophageal Reflux Musculoskeletal: Yes (CARPEL TUNNEL) HEENT: No Cancer: No Psychosocial: Yes Anxiety, Depression Integumentary: No Blood Disorders: No Family Medical History Diabetes mellitus G8 BROTHER Physical Exam Vital Signs Vital Signs - First Documented 07/06/22 16:36 Temp 35.9 Pulse 82 Resp 20 B/P (MAP) 143/80 (101) Pulse Ox 94 O2 Delivery Room Air Capillary Refill : Less Than 3 Seconds Height, Weight, BMI Height: '" Weight: lbs. oz. kg; 39.00 BMI Method: General Appearance: WD/WN, no apparent distress HEENT: PERRL/EOMI, normal ENT inspection, pharynx normal Neck: non-tender, full range of motion, supple, normal inspection Cardiovascular: regular rate, rhythm, no gallop, no murmur Respiratory: lungs clear, normal breath sounds, no respiratory distress, no accessory muscle use Gastrointestinal: normal bowel sounds, non tender, soft Back: normal inspection, no vertebral tenderness Extremities: normal range of motion, non-tender, normal inspection, no calf tenderness Psychiatric: alert, oriented x 3 Crainal Nerves: normal hearing, normal speech, PERRL Coordination/Gait: normal gait Motor/Sensory: no motor deficit, no sensory deficit, no pronator drift Skin: normal color, warm/dry Bri Coma Score Best Eye Response: (4) Open Spontaneously Best Verbal Response: (5) Oriented Best Motor Response: (6) Obeys Commands Progress/Results/Core Measures Results/Orders Lab Results Laboratory Tests Test 07/06/22 17:55 Range/Units White Blood Count 7.8 4.3-11.0 10^3/uL Red Blood Count 4.23 3.80-5.11 10^6/uL Hemoglobin 12.0 11.5-16.0 g/dL Hematocrit 37 35-52 % Mean Corpuscular Volume 88 80-99 fL Mean Corpuscular Hemoglobin 28 25-34 pg Mean Corpuscular Hemoglobin Concent 32 32-36 g/dL Red Cell Distribution Width 14.0 10.0-14.5 % Platelet Count 271 130-400 10^3/uL Mean Platelet Volume 9.2 9.0-12.2 fL Immature Granulocyte % (Auto) 0 % Neutrophils (%) (Auto) 60 42-75 % Lymphocytes (%) (Auto) 22 12-44 % Monocytes (%) (Auto) 11 0-12 % Eosinophils (%) (Auto) 7 0-10 % Basophils (%) (Auto) 0 0-10 % Neutrophils # (Auto) 4.7 1.8-7.8 X 10^3 Lymphocytes # (Auto) 1.7 1.0-4.0 X 10^3 Monocytes # (Auto) 0.9 0.0-1.0 X 10^3 Eosinophils # (Auto) 0.5 H 0.0-0.3 10^3/uL Basophils # (Auto) 0.0 0.0-0.1 10^3/uL Immature Granulocyte # (Auto) 0.0 0.0-0.1 10^3/uL Sodium Level 139 135-145 MMOL/L Potassium Level 3.9 3.6-5.0 MMOL/L Chloride Level 104 98-107 MMOL/L Carbon Dioxide Level 24 21-32 MMOL/L Anion Gap 11 5-14 MMOL/L Blood Urea Nitrogen 7 7-18 MG/DL Creatinine 0.67 0.60-1.30 MG/DL Estimat Glomerular Filtration Rate 110 BUN/Creatinine Ratio 10 Glucose Level 88 70-105 MG/DL Calcium Level 9.0 8.5-10.1 MG/DL Corrected Calcium 9.2 8.5-10.1 MG/DL Total Bilirubin 0.2 0.1-1.0 MG/DL Aspartate Amino Transf (AST/SGOT) 18 5-34 U/L Alanine Aminotransferase (ALT/SGPT) 20 0-55 U/L Alkaline Phosphatase 70 40-136 U/L Total Protein 6.8 6.4-8.2 GM/DL Albumin 3.7 3.2-4.5 GM/DL Thyroid Stimulating Hormone (TSH) 1.57 0.35-4.94 UIU/ML My Orders Orders - LAINEY CARTAGENA APRN Ct Head Wo (07/06/22 17:01) Nasal Bones 3 Views (07/06/22 17:01) Ekg Tracing (07/06/22 17:24) Cbc With Automated Diff (07/06/22 17:24) Comprehensive Metabolic Panel (07/06/22 17:24) Thyroid Stimulating Hormone (07/06/22 17:24) Vital Signs/I&O Blood Pressure Mean: 101 Progress Progress Note : Progress Note On exam patient has no bruising, swelling, or redness from reported injury. Obtained head CT which was unremarkable. Labs unremarkable. Discharge POC reviewed and she will follow up outpatient with her PCP. Initial ECG Impression Date: Jul 06, 2022 Initial ECG Impression Time: 18:01 Initial ECG Rhythm: Normal Sinus Initial ECG Intervals: Normal Initial ECG Impression: Normal Diagnostic Imaging Diagonstic Imaging: CT Comments [facility] [place] [place] NAME: NICHELLE MCDONNELL [facility] REC#: [id number] PT STATUS: DEP ER : 1975 PHYSICIAN: LAINEY CARTAGENA APRN ADMIT DATE: 07/06/22/ER Signed Date of Exam:07/06/22 CT HEAD WO PROCEDURE: CT head without contrast. TECHNIQUE: Multiple contiguous axial images were obtained through the brain without the use of intravenous contrast. Auto Exposure Controls were utilized during the CT exam to meet ALARA standards for radiation dose reduction. INDICATION: Syncope and head injury. No prior studies are available for comparison. The ventricles and sulci are within normal limits. No sulcal effacement or midline shift is identified. No acute intra-axial or extra-axial hemorrhage is detected. Cisterns are patent. Visualized paranasal sinuses demonstrate mucosal thickening of ethmoid air cells. IMPRESSION: No acute intracranial process is detected. Dictated by: Dictated on workstation # [id number] Dict: 07/06/22 1738 Trans: 07/06/22 1857 [place] [id number] Interpreted by: FACUNDO MATA MD Electronically signed by: FACUNDO MATA MD 07/06/221856 Diagonstic Imaging: Xray Comments [facility] [place] [place] NAME: NICHELLE MCDONNELL [facility] REC#: [id number] PT STATUS: DEP ER : 1975 PHYSICIAN: LAINEY CARTAGENA SOFTWARE CONFIGURATION MANAGER ADMIT DATE: 07/06/22/ER Signed Date of Exam:07/06/22 NASAL BONES 3 VIEWS Indication: Syncope with nasal injury. Time of Exam: 5:41 PM 3 views of the nasal bones were obtained. The nasal bones appear intact. No displaced nasal bone fracture seen. Anterior nasal spine appears intact. Impression: No acute bony abnormality is detected. Dictated by: Dictated on workstation # [id number] Dict: 07/06/221741 Trans: 07/06/221856 CV [id number] Interpreted by: FACUNDO MATA MD Electronically signed by: FACUNDO MATA MD 07/06/221856 Reviewed: Reviewed by Me Departure Impression Primary Impression: Fainting Additional Impression: Head contusion Disposition: 01 HOME, SELF-CARE Condition: Improved Departure-Patient Inst. Decision time for Depature: 18:25 Referrals: [facility] [place] ([place]) Primary Care Physician NETTE JOYCE (Family) Primary Care Physician Patient Instructions: Fainting, Adult ED Add. Discharge Instructions: Plan: 1. Follow up with your primary care provider, call to see if you are able to schedule closer follow up. 2. May take Tylenol for headache, avoid taking anything stronger. 3. Return to ER for any new, concerning, or worsening symptoms. All discharge instructions reviewed with patient and/or family. Voiced understanding. LAINEY CARTAGENA SOFTWARE CONFIGURATION MANAGER Jul 06, 2022 17:02
--- NOTE | 2022-07-06 17:42 | Diagnostic Imaging Report ---
PROCEDURE: CT head without contrast. TECHNIQUE: Multiple contiguous axial images were obtained through the brain without the use of intravenous contrast. Auto Exposure Controls were utilized during the CT exam to meet ALARA standards for radiation dose reduction. INDICATION: Syncope and head injury. No prior studies are available for comparison. The ventricles and sulci are within normal limits. No sulcal effacement or midline shift is identified. No acute intra-axial or extra-axial hemorrhage is detected. Cisterns are patent. Visualized paranasal sinuses demonstrate mucosal thickening of ethmoid air cells. IMPRESSION: No acute intracranial process is detected. Dictated by: Dictated on workstation # [id number]
--- NOTE | 2022-07-06 17:44 | Diagnostic Imaging Report ---
Indication: Syncope with nasal injury. Time of Exam: 5:41 PM 3 views of the nasal bones were obtained. The nasal bones appear intact. No displaced nasal bone fracture seen. Anterior nasal spine appears intact. Impression: No acute bony abnormality is detected. Dictated by: Dictated on workstation # [id number]
[2022-07-06 18:13] LABS: BASOPHILS % (AUTO) 0 % (0-10); EOSINOPHILS # (AUTO) 0.5 10^3/uL (0.0-0.3); EOSINOPHILS % (AUTO) 7 % (0-10); HEMATOCRIT 37 % (35-52); LYMPHOCYTES # (AUTO) 1.7 X 10^3 (1.0-4.0); LYMPHOCYTES % (AUTO) 22 % (12-44); MEAN CORPUSCULAR HEMOGLOBIN 28 pg (25-34); MEAN CORPUSCULAR HGB CONC 32 g/dL (32-36); MEAN CORPUSCULAR VOLUME 88 fL (80-99); MEAN PLATELET VOLUME 9.2 fL (9.0-12.2); MONOCYTES # (AUTO) 0.9 X 10^3 (0.0-1.0); MONOCYTES % (AUTO) 11 % (0-12); NEUTROPHILS # (AUTO) 4.7 X 10^3 (1.8-7.8); NEUTROPHILS % (AUTO) 60 % (42-75); PLATELET COUNT 271 10^3/uL (130-400); WHITE BLOOD COUNT 7.8 10^3/uL (4.3-11.0)
[2022-07-06 18:25] LABS: ALBUMIN 3.7 GM/DL (3.2-4.5); POTASSIUM 3.9 MMOL/L (3.6-5.0)
[2022-07-06 18:27] LABS: TOTAL PROTEIN 6.8 GM/DL (6.4-8.2)
[2022-07-06 18:29] LABS: BILIRUBIN,TOTAL 0.2 MG/DL (0.1-1.0)
[2022-07-06 18:30] VITALS: BP 113/78
[2022-07-06 18:31] LABS: CREATININE SERUM 0.67 MG/DL (0.60-1.30)
== END 2022-07-06 18:30 | disposition home or self-care (01) ==
LOC: EDUNIT# 16:10 → ER 16:12
DX: R55 Syncope and collapse (principal); S00.93XA Contusion of unspecified part of head, initial encounter; F17.210 Nicotine dependence, cigarettes, uncomplicated; Z91.040 Latex allergy status; Z28.310 Unvaccinated for COVID-19; W17.89XA Other fall from one level to another, initial encounter; W22.03XA Walked into furniture, initial encounter
CPT/HCPCS: 36415; 70160; 70450; 80053; 84443; 85025; 93005

== ENCOUNTER 2023-01-12 20:52 | Outpatient (CLI) | payer OTHER ==
[~2023-01-12 20:52] MED LIST changes: +ALBU8.5H6 INH; -MOME13HF INH; +MOME13HF11 INH; -RT-ALBUINH INH
== END 2023-01-13 06:00 | disposition home or self-care (01) ==
LOC: SLEEP 20:52
PROVIDERS: ATTEND Nurse Practitioner Family
DX: J98.4 Other disorders of lung (principal); J44.9 Chronic obstructive pulmonary disease, unspecified; G47.34 Idiopathic sleep related nonobstructive alveolar hypoventilation
CPT/HCPCS: 95811

== ENCOUNTER → 2023-02-16 | Outpatient (CLI) | payer OTHER, SELFPAY | LOC: RAD 14:45 | PROVIDERS: ATTEND Nurse Practitioner | DX: M54.50 Low back pain, unspecified (principal) ==

== ENCOUNTER 2023-05-12 16:46 | Emergency (ER) | payer SELFPAY ==
[~2023-05-12] VITALS: Ht 165 cm; Wt 104.0 kg
[2023-05-12 16:56] VITALS: BP 89/62
[2023-05-12 17:26] LABS: BASOPHILS % (AUTO) 0 % (0-10); EOSINOPHILS # (AUTO) 0.2 10^3/uL (0.0-0.3); EOSINOPHILS % (AUTO) 2 % (0-10); HEMATOCRIT 42 % (35-52); HEMOGLOBIN 14.2 g/dL (11.5-16.0); LYMPHOCYTES # (AUTO) 2.1 10^3/uL (1.0-4.0); LYMPHOCYTES % (AUTO) 17 % (12-44); MEAN CORPUSCULAR HEMOGLOBIN 29 pg (25-34); MEAN CORPUSCULAR HGB CONC 34 g/dL (32-36); MEAN CORPUSCULAR VOLUME 87 fL (80-99); MONOCYTES # (AUTO) 0.8 10^3/uL (0.0-1.0); MONOCYTES % (AUTO) 6 % (0-12); NEUTROPHILS # (AUTO) 9.3 10^3/uL (1.8-7.8); NEUTROPHILS % (AUTO) 75 % (42-75); PLATELET COUNT 376 10^3/uL (130-400); WHITE BLOOD COUNT 12.5 10^3/uL (4.3-11.0)
[2023-05-12] MEDS ORDERED: LACTATED RINGERS 1,000 ML IV ONE ×3 (17:30→20:00)
[2023-05-12 17:55] LABS: ALBUMIN 4.1 GM/DL (3.2-4.5); POTASSIUM 3.6 MMOL/L (3.6-5.0)
[2023-05-12 17:57] LABS: CALCIUM 9.6 MG/DL (8.5-10.1)
[2023-05-12 17:58] LABS: TOTAL PROTEIN 7.5 GM/DL (6.4-8.2)
[2023-05-12 18:00] LABS: BILIRUBIN,TOTAL 0.4 MG/DL (0.1-1.0)
[2023-05-12 18:01] LABS: CREATININE SERUM 1.11 MG/DL (0.60-1.30)
[2023-05-12 18:04] LABS: MAGNESIUM 2.2 MG/DL (1.6-2.4)
--- NOTE | 2023-05-12 18:20 | ED General ---
General Chief Complaint: Neurological Problems Stated Complaint: SEIZURE Nursing Triage Note: PATIENT REPORTS TO ED POV FOR SEIZURE. PER PATIENT SHE WAS STANDING WHEN SHE HAD A SEIZURE AROUND 1645. PATIENT REPORTS FALLING TO THE GROUND, DENIES HEAD INJURY. DENIES LOC. PATIENT REPORTS SHE HAD A SEIZURE YEARS AGO, NOT ON ANY TREATMENT FOR THEM AT THIS TIME. PATIENT IS ALERT AND ORIENTED TO PERSON, TIME, PLACE, AND SITUATION. Source of Information: Patient Exam Limitations: No Limitations (BENJAMIN CAMARENA MD) History of Present Illness Date Seen by Provider: May 12, 2023 Time Seen by Provider: 17:17 Initial Comments This 48-year-old woman presents to the emergency room by private vehicle after reportedly having seizure-like activity. She has been feeling ill over the last several days and has primarily been staying on her couch. Outside temperatures have been up to 105 F the past couple of days. She has a window air c onditioning unit but it is insufficient to cool her home. She is diaphoretic on arrival and hypotensive. She reports friends came to the door. When she got up and walked to the door she collapsed and had convulsions. She reports brief loss of consciousness but recalls having convulsions while awake. There was no loss of bowel or bladder. She reports unofficial history of seizure disorder. She has not had a neurology consult or EEG testing. CT of the head from 2021 was unremarkable on my review. We did contact the clinic and they did not have any records of documented seizure disorder based on any neurology consultation. They had no additional imaging on file. Patient does not take any antiseizure medications. She does note history of hypertension for which she takes lisinopril. She is confident that she did not take any extra doses. She has reported daily nausea in recent weeks without vomiting or diarrhea. (BENJAMIN CAMARENA MD) Allergies and Home Medications Allergies Coded Allergies: latex (Verified Allergy, Unknown, 10/03/20) Patient Home Medication List Home Medication List Reviewed: Yes (BENJAMIN CAMARENA MD) Albuterol Sulfate (Ventolin Hfa) 1 Puff Puff, 2 PUFF INH QID PRN for SHORTNESS OF BREATH, (Reported) Entered as Reported by: TONI ALEXANDRE on 09/08/20 1420 Azithromycin (Azithromycin) 250 Mg Tablet, 250 MG PO DAILY Prescribed by: CESAR DOTY on 10/05/20 1257 Azithromycin (Azithromycin) 250 Mg Tablet, 250 MG PO UD Prescribed by: HANNY TEMPLE on 05/28/22 1221 Brexpiprazole (Rexulti) 2 Mg Tablet, 2 MG PO HS, (Reported) Entered as Reported by: LORRAINE CLEMENTE on 10/03/20 1454 Cetirizine HCl (Zyrtec) 10 Mg Tablet, 10 MG PO DAILY, (Reported) Entered as Reported by: LORRAINE CLEMENTE on 10/03/20 1455 Duloxetine HCl (Cymbalta) 60 Mg Capsule.dr, 60 MG PO DAILY, (Reported) Entered as Reported by: LORRAINE CLEMENTE on 10/03/20 145 Folic Acid/Multivit-Minerals (Women's Multivitamin Gummies) 200 Mcg Tab.chew, 2 00 MCG PO DAILY, (Reported) Entered as Reported by: LORRAINE CLEMENTE on 10/03/20 1455 Guaifenesin (Mucinex) 600 Mg Tab.er.12h, 600 MG PO Q12H PRN for CONGESTION, (Reported) Entered as Reported by: LORRAINE CLEMENTE on 10/03/20 1455 Ipratropium/Albuterol Sulfate (Iprat-Albut 0.5-3(2.5) mg/3 ml) 3 Ml Ampul.neb, 3 ML IH Q4H PRN for SHORTNESS OF BREATH, (Reported) Entered as Reported by: TONI ALEXANDRE on 09/08/20 1420 Methylprednisolone (Methylprednisolone Dose Pack) 4 Mg Tab.ds.pk, 4 MG PO UD Prescribed by: HANNY TEMPLE on 05/28/22 1221 Mometasone/Formoterol (Dulera 200 Mcg/5 Mcg Inhaler) 13 Gm Hfa.aer.ad, 2 PUFF INH DAILY, (Reported) Entered as Reported by: TONI ALEXANDRE on 09/08/20 1420 Montelukast Sodium (Montelukast Sodium) 10 Mg Tablet, 10 MG PO DAILY, (Reported) Entered as Reported by: TONI ALEXANDRE on 09/08/20 1533 Nitrofurantoin Monohyd/M-Cryst (Macrobid 100 mg Capsule) 100 Mg Capsule, 1 TAB PO BID Prescribed by: NICHELLE JUAREZ on 05/12/23 194 Pantoprazole Sodium (Protonix) 40 Mg Tablet.dr, 40 MG PO DAILY, (Reported) Entered as Reported by: TONI ALEXANDRE on 09/08/20 1533 Prazosin HCl (Prazosin HCl) 2 Mg Capsule, 2 MG PO HS, (Reported) Entered as Reported by: LORRAINE CLEMENTE on 10/03/20 1454 Prednisone (Prednisone) 10 Mg Tab.ds.pk, 10 MG PO DAILY Prescribed by: CESAR DOTY on 10/05/20 1257 Review of Systems Review of Systems Constitutional: see HPI EENTM: no symptoms reported Respiratory: no symptoms reported Cardiovascular: see HPI Gastrointestinal: no symptoms reported Genitourinary: no symptoms reported Musculoskeletal: no symptoms reported Skin: see HPI Psychiatric/Neurological: See HPI Hematologic/Lymphatic: No Symptoms Reported Immunological/Allergic: no symptoms reported (BENJAMIN CAMARENA MD) Past Tzhyxfe-Ckkndn-Bagbmn Hx Patient Social History Tobacco Use?: Yes Tobacco type used: Cigarettes Smoking Status: Current Everyday Smoker Use of E-Cig and/or Vaping dev: Yes E-Cig or Vaping type used: Nicotine Use of E-Cig and/or Vaping Joaquin: Current Someday User Substance use?: Yes Substance type: Marijuana Additional substance use comme: "IT'S BEEN DAYS" SINCE LAST USED Substance frequency: Once in a while Alcohol Use?: No Pt feels they are or have been: No (BENJAMIN CAMARENA MD) Immunizations Up To Date Tetanus Booster (TDap): Less than 5yrs First/Initial COVID19 Vaccinat: declined Second COVID19 Vaccination Jacques: declined Third COVID19 Vaccination Date: declined (BENJAMIN CAMARENA MD) Seasonal Allergies Seasonal Allergies: No (BENJAMIN CAMARENA MD) Past Medical History Surgery/Hospitalization HX: ASTHMA, HYPERTENSION, COPD DENIES SURG. HX Surgeries: No Respiratory: Yes Asthma, COPD, Emphysema Cardiac: Yes High Cholesterol, Hypertension Neurological: Yes Seizure Disorder (Patient reports history of seizures) : No Female Reproductive Disorders: Polycystic Ovarian Dis Genitourinary: No Gastrointestinal: Yes Gastroesophageal Reflux Musculoskeletal: Yes (CARPEL TUNNEL) HEENT: No Cancer: No Psychosocial: Yes Anxiety (Social anxiety disorder), PTSD, Depression Integumentary: No Blood Disorders: No (BENJAMIN CAMARENA MD) Family Medical History Diabetes mellitus G8 BROTHER DRUGS--UDS + FOR METHAMPHETAMINES/AMPHETAMINES, THC ON 05/12/23 (NICHELLE JUAREZ DO) Physical Exam Vital Signs Vital Signs - First Documented 05/12/23 16:56 Temp 36.9 Pulse 93 Resp 18 B/P (MAP) 89/62 (71) Pulse Ox 96 O2 Delivery Room Air (NICHELLE JUAREZ DO) Vital Signs Capillary Refill : Less Than 3 Seconds (BENJAMIN CAMARENA MD) Height, Weight, BMI Height: '" Weight: lbs. oz. kg; 38.00 BMI Method: General Appearance: No Apparent Distress, WD/WN HEENT: PERRL/EOMI, Normal ENT Inspection, Pharynx Normal Neck: Normal Inspection Respiratory: Lungs Clear, Normal Breath Sounds, No Accessory Muscle Use Cardiovascular: Regular Rate, Rhythm, No Edema, No Murmur Gastrointestinal: Non Tender, Soft; No Distended Extremity: Normal Inspection, No Pedal Edema Neurologic/Psychiatric: Alert, Oriented x3, No Motor/Sensory Deficits, Normal Mood/Affect Skin: Normal Color, Diaphoresis (BENJAMIN CAMARENA MD) HEENT: Other (EXTENSIVE DENTAL DECAY DOWN TO GUMS) (NICHELLE JUAREZ DO) Progress/Results/Core Measures Suspected Sepsis SIRS Temperature: Pulse: 93 Respiratory Rate: 18 Laboratory Tests 05/12/23 17:15: White Blood Count 12.5H Blood Pressure 89 /62 Mean: 71 Laboratory Tests 05/12/23 17:15: Creatinine 1.11, Platelet Count 376, Total Bilirubin 0.4 (BENJAMIN CAMARENA MD) Results/Orders Lab Results Laboratory Tests Test 05/12/23 17:15 05/12/23 18:41 Range/Units White Blood Count 12.5 H 4.3-11.0 10^3/uL Red Blood Count 4.86 3.80-5.11 10^6/uL Hemoglobin 14.2 11.5-16.0 g/dL Hematocrit 42 35-52 % Mean Corpuscular Volume 87 80-99 fL Mean Corpuscular Hemoglobin 29 25-34 pg Mean Corpuscular Hemoglobin Concent 34 32-36 g/dL Red Cell Distribution Width 14.3 10.0-14.5 % Platelet Count 376 130-400 10^3/uL Mean Platelet Volume 9.0 9.0-12.2 fL Immature Granulocyte % (Auto) 1 % Neutrophils (%) (Auto) 75 42-75 % Lymphocytes (%) (Auto) 17 12-44 % Monocytes (%) (Auto) 6 0-12 % Eosinophils (%) (Auto) 2 0-10 % Basophils (%) (Auto) 0 0-10 % Neutrophils # (Auto) 9.3 H 1.8-7.8 10^3/uL Lymphocytes # (Auto) 2.1 1.0-4.0 10^3/uL Monocytes # (Auto) 0.8 0.0-1.0 10^3/uL Eosinophils # (Auto) 0.2 0.0-0.3 10^3/uL Basophils # (Auto) 0.0 0.0-0.1 10^3/uL Immature Granulocyte # (Auto) 0.1 0.0-0.1 10^3/uL Sodium Level 138 135-145 MMOL/L Potassium Level 3.6 3.6-5.0 MMOL/L Chloride Level 105 98-107 MMOL/L Carbon Dioxide Level 20 L 21-32 MMOL/L Anion Gap 13 5-14 MMOL/L Blood Urea Nitrogen 14 7-18 MG/DL Creatinine 1.11 0.60-1.30 MG/DL Estimat Glomerular Filtration Rate 62 BUN/Creatinine Ratio 13 Glucose Level 148 H 70-105 MG/DL Calcium Level 9.6 8.5-10.1 MG/DL Corrected Calcium 9.5 8.5-10.1 MG/DL Magnesium Level 2.2 1.6-2.4 MG/DL Total Bilirubin 0.4 0.1-1.0 MG/DL Aspartate Amino Transf (AST/SGOT) 41 H 5-34 U/L Alanine Aminotransferase (ALT/SGPT) 45 0-55 U/L Alkaline Phosphatase 77 40-136 U/L Total Creatine Kinase 68 29-168 U/L Creatine Kinase MB 1.9 <6.6 NG/ML Myoglobin 45.6 10.0-92.0 NG/ML Total Protein 7.5 6.4-8.2 GM/DL Albumin 4.1 3.2-4.5 GM/DL Serum Test, Qualitative NEGATIVE NEGATIVE Serum Alcohol < 10 <10 MG/DL Urine Color YELLOW Urine Clarity CLEAR Urine pH 5.5 5-9 Urine Specific Quinn >=1.030 1.016-1.022 Urine Protein 2+ H NEGATIVE Urine Glucose (UA) NEGATIVE NEGATIVE Urine Ketones TRACE H NEGATIVE Urine Nitrite NEGATIVE NEGATIVE Urine Bilirubin 2+ H NEGATIVE Urine Urobilinogen 1.0 < = 1.0 MG/DL Urine Leukocyte Esterase NEGATIVE NEGATIVE Urine RBC (Auto) 2+ H NEGATIVE Urine RBC 2-5 H /HPF Urine WBC 2-5 /HPF Urine Squamous Epithelial Cells 5-10 /HPF Urine Crystals PRESENT H /LPF Urine Amorphous Sediment MOD DAWSON URATES H /LPF Urine Bacteria MODERATE H /HPF Urine Casts PRESENT /LPF Urine Hyaline Casts 10-25 H /LPF Urine Mucus LARGE H /LPF Urine Culture Indicated YES Urine Opiates Screen NEGATIVE NEGATIVE Urine Oxycodone Screen NEGATIVE NEGATIVE Urine Methadone Screen NEGATIVE NEGATIVE Urine Propoxyphene Screen NEGATIVE NEGATIVE Urine Barbiturates Screen NEGATIVE NEGATIVE Ur Tricyclic Antidepressants Screen NEGATIVE NEGATIVE Urine Phencyclidine Screen NEGATIVE NEGATIVE Urine Amphetamines Screen POSITIVE H NEGATIVE Urine Methamphetamines Screen POSITIVE H NEGATIVE Urine Benzodiazepines Screen NEGATIVE NEGATIVE Urine Cocaine Screen NEGATIVE NEGATIVE Urine Cannabinoids Screen POSITIVE H NEGATIVE (NICHELLE JUAREZ DO) My Orders Orders - NICHELLE JUAREZ DO Creatine Kinase (05/12/23 18:29) Creatine Kinase Mb (05/12/23 18:29) Myoglobin Serum (05/12/23 18:29) Ct Head Wo-R/O Stroke (05/12/23 18:29) Urine Bedside (05/12/23 19:00) Rx-Nitrofurantoin Bulloch (Rx-Macrobid) (05/12/23 19:44) Ed Iv/Invasive Line Start (05/12/23 19:46) Lactated Ringers (Lr 1000 Ml Iv Solution (05/12/23 20:00) (NICHELLE JUAREZ DO) Medications Given in ED Current Medications Medications Dose Ordered Sig/Shamar Route Start Time Stop Time Status Last Admin Dose Admin Lactated Ringer's 1,000 ml @ 0 mls/hr Q0M ONCE IV 05/12/23 17:30 05/12/23 17:31 DC 05/12/23 17:56 1,000 MLS/HR Lactated Ringer's 1,000 ml @ 0 mls/hr Q0M ONCE IV 05/12/23 18:30 05/12/23 18:31 DC 05/12/23 18:43 1,000 MLS/HR Lactated Ringer's 1,000 ml @ 0 mls/hr Q0M ONCE IV 05/12/23 20:00 05/12/23 20:01 DC 05/12/23 19:55 0 MLS/HR (NICHELLE JUAREZ DO) Vital Signs/I&O 05/12/23 16:56 Temp 36.9 Pulse 93 Resp 18 B/P (MAP) 89/62 (71) Pulse Ox 96 O2 Delivery Room Air (NICHELLE JUAREZ DO) Vital Signs/I&O Capillary Refill : Less Than 3 Seconds (BENJAMIN CAMARENA MD) Blood Pressure Mean: 71 Progress Note : Progress Note 1829--ASSUMED CARE FROM DR. CAMARENA AT SHIFT CHANGE. PT IS ASYMPTOMATIC AT THIS TIME, SITTING UP AND SMILING. SYSTOLIC BP 103 AT THIS TIME. PT IS RECEIVING IV FLUIDS. ADDITIONAL LAB AND HEAD CT ORDERED. UNEVENTFUL ER STAY PT ASYMPTOMATIC FOR ENTIRE ER STAY VITALS STABLE NO DETERIORATION IN PT'S CONDITION DURING ER STAY LABS UNREMARKABLE, EXCEPT FOR UDS + FOR THC, METHAMPHETAMINES/AMPHETAMINES UA DOES HAVE MODERATE BACTERIA BUT NO LEUKOCYTES AND ONLY 2-[address] HEAD NEGATIVE EKG IS UNREMARKABLE. NO DEFINITE EVIDENCE THAT PT HAD A SEIZURE, THERE IS NO REPORTED POST-ICTAL SYMPTOMS, AND PT'S CK/CK-MB AND MYOGLOBIN ARE NEGATIVE. SUSPECT PT'S SYMPTOMS ARE MORE HEAT-RELATED AND DRUG-RELATED, WELL VOLUME DEPLETION. DISCUSSED TEST RESULTS, ANTICIPATED COURSE, SYMPTOMATIC TREATMENT, NEED TO STOP DRUG USE. NEED FOR FOLLOW UP AND RETURN PRECAUTIONS. (NICHELLE JUAREZ DO) ECG Initial ECG Impression Date: May 12, 2023 Initial ECG Impression Time: 17:23 Initial ECG Rate: 85 Initial ECG Rhythm: Normal Sinus Initial ECG Intervals: Normal Initial ECG Impression: Normal Comment Normal sinus rhythm with no ST elevation or depression. No abnormal intervals or axis deviation. (BENJAMIN CAMARENA MD) Diagnostic Imaging Comments CT HEAD--PER RADIOLOGIST REPORT AT 1935 FINDINGS: There is no hemorrhage or infarct. No mass, mass effect or midline shift with no hydrocephalus. The calvarium is intact. The paranasal sinuses and the mastoid air cells are clear, other than minimal partial opacification of the left mastoid air cells similar to previous imaging. IMPRESSION: No acute intracranial process with incidental findings, as above. Reviewed: Reviewed by Me (NICHELLE JUAREZ DO) Departure Impression Primary Impression: Seizure-like activity Additional Impressions: Hypotension Qualified Codes: I95.9 - Hypotension, unspecified Heat exposure Qualified Codes: T67.9XXA - Effect of heat and light, unspecified, initial encounter Syncope Methamphetamine addiction Addiction, marijuana Volume depletion UTI (urinary tract infection) Disposition: 01 HOME, SELF-CARE Condition: Stable Departure-Patient Inst. Decision time for Depature: 19:36 (NICHELLE JUAREZ DO) Referrals: [facility] (PCP/Family) Primary Care Physician Patient Instructions: Substance Use Disorder ED, Fainting, Adult ED, Heat Illness ED, Dehydration, Adult ED, Urinary Tract Infection, Adult ED Add. Discharge Instructions: INCREASE YOUR FLUID INTAKE--ESPECIALLY WATER AND GATORADE KEEP COOL POSSIBLE NO DRUGS OF ANY KIND!!! FOLLOW UP WITH YOUR DR IN 2-3 DAYS FOR RECHECK, RETURN TO ER IF SYMPTOMS WORSEN All discharge instructions reviewed with patient and/or family. Voiced understa nding. Scripts Nitrofurantoin Monohyd/M-Cryst (Macrobid 100 mg Capsule) 100 Mg Capsule 1 TAB PO BID, #20 CAP Prov: NICHELLE JUAREZ DO 05/12/23 BENJAMIN CAMARENA MD May 12, 2023 18:20 NICHELLE JUAREZ DO May 12, 2023 18:29
[2023-05-12 18:47] LABS: CLARITY,URINE CLEAR; COLOR,URINE YELLOW; GLUCOSE, URINE (UA) NEGATIVE (NEGATIVE); KETONES,URINE TRACE (NEGATIVE); LEUKOCYTE ESTERASE ,URINE NEGATIVE (NEGATIVE); NITRITE,URINE NEGATIVE (NEGATIVE); PH,URINE 5.5 (5-9); PROTEIN,URINE 2+ (NEGATIVE)
[2023-05-12 18:59] LABS: AMORPHOUS SEDIMENT,UR MOD AMOR URATES /LPF; BACTERIA,URINE MODERATE /HPF
[2023-05-12 19:00] LABS: BILIRUBIN,URINE 2+ (NEGATIVE)
[2023-05-12 19:04] LABS: AMPHETAMINE SCREEN, URINE POSITIVE (NEGATIVE); BARBITURATE SCREEN URINE NEGATIVE (NEGATIVE); BENZODIAZEPINES SCREEN URINE NEGATIVE (NEGATIVE); CANNABINOID SCREEN, URINE POSITIVE (NEGATIVE); COCAINE SCREEN URINE NEGATIVE (NEGATIVE); METHADONE STAT NEGATIVE (NEGATIVE); OPIATE SCREEN URINE NEGATIVE (NEGATIVE); OXYCODONE STAT NEGATIVE (NEGATIVE); PROPOXYPHENE STAT NEGATIVE (NEGATIVE); TRICYCLIC ANTIDEPRESSANTS SCRE NEGATIVE (NEGATIVE)
[2023-05-12 19:10] LABS: CREATINE KINASE 68 U/L (29-168)
[2023-05-12 19:16] LABS: CREATINE KINASE MB 1.9 NG/ML (<6.6)
--- NOTE | 2023-05-12 19:27 | Diagnostic Imaging Report ---
INDICATION: Seizures today. EXAMINATION: CT brain without contrast, 05/12/2023. All CT scans use one or more of the following dose optimizing techniques: automated exposure control, MA and/or KvP adjustment based on patient size and exam type or iterative reconstruction. COMPARISON: 07/06/2022. FINDINGS: There is no hemorrhage or infarct. No mass, mass effect or midline shift with no hydrocephalus. The calvarium is intact. The paranasal sinuses and the mastoid air cells are clear, other than minimal partial opacification of the left mastoid air cells similar to previous imaging. IMPRESSION: No acute intracranial process with incidental findings, as above. Dictated by: Dictated on workstation # [id number]
[2023-05-12] MEDS ORDERED: NITR-65 PO (19:43)
[2023-05-12] MEDS ORDERED: RX-NITROFURANTOIN 100 MG (MACROBID) CAP PPK#2 PO STA (19:44)
== END 2023-05-12 20:28 | disposition home or self-care (01) ==
LOC: EDUNIT# 16:46 → ER 16:47
DX: T67.9XXA Effect of heat and light, unspecified, initial encounter (principal); R56.9 Unspecified convulsions; I95.9 Hypotension, unspecified; I10 Essential (primary) hypertension; F12.20 Cannabis dependence, uncomplicated; N39.0 Urinary tract infection, site not specified; E86.9 Volume depletion, unspecified; F15.20 Other stimulant dependence, uncomplicated; F17.210 Nicotine dependence, cigarettes, uncomplicated; F17.290 Nicotine dependence, other tobacco product, uncomplicated; Z79.899 Other long term (current) drug therapy; Z91.040 Latex allergy status
CPT/HCPCS: 70450; 80053; 80306; 81000; 82550; 82553; 83735; 83874; 84703 ×2; 85025; 87088; 93005; 93041; 99284; G0480; 36415; 80320

== ENCOUNTER 2023-10-13 15:17 | Emergency (ER) | payer SELFPAY ==
[~2023-10-13 15:17] MED LIST changes: +NITR-65 PO
[2023-10-13] MEDS ORDERED: RT-Ipratropium/Albuterol NEB 3 ML VIAL INH ONE (15:45)
[2023-10-13] MEDS ORDERED: predniSONE 20 MG TABLET PO ONE (15:45)
--- NOTE | 2023-10-13 16:24 | Diagnostic Imaging Report ---
EXAMINATION: Chest, one view. HISTORY: Cough. COMPARISON: 05/28/2022. FINDINGS: Stable mild enlargement of the cardiac silhouette with prominence of the pulmonary vasculature. The lungs are clear without consolidation, pleural effusion, or pneumothorax. The osseous structures are intact. IMPRESSION: 1. No acute radiographic abnormality in the chest. 2. Stable mild cardiomegaly and pulmonary vascular congestion. Dictated by: Dictated on workstation # [id number]
--- NOTE | 2023-10-13 16:32 | ED Cough/URI ---
General Chief Complaint: Fever-Adult/Adol Stated Complaint: HEADACHE, BODY ACHES, TIREDNESS Nursing Triage Note: PT AMB TO RM 5 PT STATES HAS BEEN SICK AND HAD FEVER FOR 3 DAYS. PT STATES HAS BEEN SICK IN BED. Source: patient Exam Limitations: no limitations (JOLENE ZARAGOZA) History of Present Illness Date Seen by Provider: Oct 13, 2023 Time Seen by Provider: 15:45 Initial Comments Patient is a 48-year-old female with a history of smoking, COPD who presents ED with flulike symptoms. She states she has been feeling sick for the past 3 days. Body aches chills weakness fatigue nasal congestion cough, wheezing and shortness of breath. Denies history of coronary artery disease. Denies of any leg swelling or current leg pain. She denies taking any medication at home for her symptoms. She does have a history of hypertension not currently taking her medication as she has been sleeping. She states she is eating and drinking but not as much. She is urinating without any difficulties. She states she feels hydrated. She denies of any fever, vomiting, diarrhea, abdominal pain, known fever, chest pain, neck pain, pain with urination frequent urination. (JOLENE ZARAGOZA) Allergies and Home Medications Allergies Coded Allergies: latex (Verified Allergy, Unknown, 10/03/20) Patient Home Medication List Home Medication List Reviewed: Yes (JOLENE ZARAGOZA) Albuterol Sulfate (Ventolin Hfa) 1 Puff Puff, 2 PUFF INH QID PRN for SHORTNESS OF BREATH, (Reported) Entered as Reported by: TONI ALEXANDRE on 09/08/20 1420 Albuterol Sulfate (Ventolin Hfa) 1 Puff Puff, 2 PUFF INH Q4H Prescribed by: FAB ELDER on 10/13/23 1633 Azithromycin (Azithromycin) 250 Mg Tablet, 250 MG PO DAILY Prescribed by: CESAR DOTY on 10/05/20 1257 Azithromycin (Azithromycin) 250 Mg Tablet, 250 MG PO UD Prescribed by: HANNY TEMPLE on 05/28/22 1221 Brexpiprazole (Rexulti) 2 Mg Tablet, 2 MG PO HS, (Reported) Entered as Reported by: LORRAINE CLEMENTE on 10/03/20 1454 Cetirizine HCl (Zyrtec) 10 Mg Tablet, 10 MG PO DAILY, (Reported) Entered as Reported by: LORRAINE CLEMENTE on 10/03/20 145 Doxycycline Monohydrate (Doxycycline Monohydrate) 100 Mg Tablet, 100 MG PO BID Prescribed by: FAB ELDER on 10/13/23 1633 Duloxetine HCl (Cymbalta) 60 Mg Capsule.dr, 60 MG PO DAILY, (Reported) Entered as Reported by: LORRAINE CLEMENTE on 10/03/20 145 Folic Acid/Multivit-Minerals (Women's Multivitamin Gummies) 200 Mcg Tab.chew, 20 0 MCG PO DAILY, (Reported) Entered as Reported by: LORRAINE CLEMENTE on 10/03/20 145 Guaifenesin (Mucinex) 600 Mg Tab.er.12h, 600 MG PO Q12H PRN for CONGESTION, (Reported) Entered as Reported by: LORRAINE CLEMENTE on 10/03/20 145 Ipratropium/Albuterol Sulfate (Iprat-Albut 0.5-3(2.5) mg/3 ml) 3 Ml Ampul.neb, 3 ML IH Q4H PRN for SHORTNESS OF BREATH, (Reported) Entered as Reported by: TONI ALEXANDRE on 09/08/20 142 Methylprednisolone (Methylprednisolone Dose Pack) 4 Mg Tab.ds.pk, 4 MG PO UD Prescribed by: HANNY TEMPLE on 05/28/22 1221 Mometasone/Formoterol (Dulera 200 Mcg/5 Mcg Inhaler) 13 Gm Hfa.aer.ad, 2 PUFF INH DAILY, (Reported) Entered as Reported by: TONI ALEXANDRE on 09/08/20 1420 Montelukast Sodium (Montelukast Sodium) 10 Mg Tablet, 10 MG PO DAILY, (Reported) Entered as Reported by: TONI ALEXANDRE on 09/08/20 153 Nitrofurantoin Monohyd/M-Cryst (Macrobid 100 mg Capsule) 100 Mg Capsule, 1 TAB PO BID Prescribed by: NICHELLE JUAREZ on 05/12/231942 Pantoprazole Sodium (Protonix) 40 Mg Tablet.dr, 40 MG PO DAILY, (Reported) Entered as Reported by: TONI ALEXANDRE on 09/08/20 1533 Prazosin HCl (Prazosin HCl) 2 Mg Capsule, 2 MG PO HS, (Reported) Entered as Reported by: LORRAINE CLEMENTE on 10/03/20 1454 Prednisone (Prednisone) 10 Mg Tab.ds.pk, 10 MG PO DAILY Prescribed by: CESAR DOTY on 10/05/20 1257 Prednisone (Prednisone) 20 Mg Tab, 40 MG PO DAILY Prescribed by: FAB ELDER on 10/13/23 1639 Discontinued Medications Prednisone (Prednisone) 20 Mg Tab, 40 MG PO DAILY Prescribed by: FAB ELDER on 10/13/23 1633 Review of Systems Review of Systems Constitutional: chills; No fever; malaise, weakness EENTM: nose congestion; No ear pain, No blurred vision, No mouth pain, No throat pain, No throat swelling Respiratory: cough, short of breath, wheezing Cardiovascular: No chest pain Gastrointestinal: No abdominal pain, No diarrhea, No nausea, No vomiting Genitourinary: No decreased output, No discharge Musculoskeletal: No back pain, No joint pain Skin: No change in color, No change in hair/nails Psychiatric/Neurological: Denies Anxiety, Denies Depressed (JOLENE ZARAGOZA) All Other Systems Reviewed Negative Unless Noted: Yes (JOLENE ZARAGOZA) Past Ynwkmfs-Xdezph-Gdzwqt Hx Patient Social History Tobacco Use?: Yes Tobacco type used: Cigarettes Smoking Status: Current Everyday Smoker Substance use?: Yes Substance type: Methamphetamine, Marijuana Substance frequency: Once in a while Alcohol Use?: No Pt feels they are or have been: No (JOLENE ZARAGOZA) Immunizations Up To Date Tetanus Booster (TDap): Less than 5yrs Influenza Vaccine Up-to-Date: No; Not Current First/Initial COVID19 Vaccinat: declined Second COVID19 Vaccination Jacques: declined Third COVID19 Vaccination Date: declined (JOLENE ZARAGOZA) Seasonal Allergies Seasonal Allergies: No (JOLENE ZARAGOZA) Past Medical History Surgery/Hospitalization HX: ASTHMA, HYPERTENSION, COPD DENIES SURG. HX Surgeries: No Respiratory: Yes Asthma, COPD, Emphysema Cardiac: Yes High Cholesterol, Hypertension Neurological: Yes Seizure Disorder Last Menstrual Period: Sep 27, 2023 Female Reproductive Disorders: Polycystic Ovarian Dis Genitourinary: No Gastrointestinal: Yes Gastroesophageal Reflux Musculoskeletal: Yes (CARPEL TUNNEL) HEENT: No Cancer: No Psychosocial: Yes Anxiety, PTSD, Depression Integumentary: No Blood Disorders: No (JOLENE ZARAGOZA) Family Medical History Diabetes mellitus G8 BROTHER DRUGS--UDS + FOR METHAMPHETAMINES/AMPHETAMINES, THC ON 05/12/23 (JOLENE ZARAGOZA) Physical Exam Vital Signs - First Documented 10/13/23 10/13/23 15:25 16:08 Temp 36.5 Pulse 86 Resp 18 B/P (MAP) 111/83 (92) Pulse Ox 97 O2 Delivery Room Air O2 Flow Rate 0 (BENJAMIN CAMARENA MD) Capillary Refill : Less Than 3 Seconds (JOLENE ZARAGOZA) Height: '" Weight: lbs. oz. kg; BMI Method: General Appearance: WD/WN, no apparent distress Eyes: Bilateral Eye Normal Inspection, Bilateral Eye PERRL, Bilateral Eye EOMI HEENT: PERRL/EOMI, normal ENT inspection, TMs normal, pharynx normal Neck: non-tender, full range of motion, supple Respiratory: chest non-tender, normal breath sounds, no respiratory distress, n o accessory muscle use, wheezing Cardiovascular: regular rate, rhythm, no edema, no gallop, no JVD Gastrointestinal: normal bowel sounds, non tender, soft Extremities: normal range of motion, non-tender, normal inspection, no pedal edema Neurologic/Psychiatric: movie extra II-XII nml as tested, no motor/sensory deficits, alert, normal mood/affect, oriented x 3 Skin: normal color, warm/dry (JOLENE ZARAGOZA) Progress/Results/Core Measures Suspected Sepsis SIRS Temperature: Pulse: 86 Respiratory Rate: 18 Blood Pressure 111 /83 Mean: 92 (JOLENE ZARAGOZA) Results/Orders Lab Results Laboratory Tests Test 10/13/23 15:28 Range/Units Influenza Type A (RT-PCR) Not Detected Not Detecte Influenza Type B (RT-PCR) Not Detected Not Detecte SARS-CoV-2 RNA (RT-PCR) Not Detected Not Detecte (BENJAMIN CAMARENA MD) Vital Signs/I&O 10/13/23 10/13/23 10/13/23 15:25 16:08 16:58 Temp 36.5 Pulse 86 85 Resp 18 16 B/P (MAP) 111/83 (92) 108/64 Pulse Ox 97 93 93 O2 Delivery Room Air Room Air O2 Flow Rate 0 (BENJAMIN CAMARENA MD) Vital Signs/I&O Capillary Refill : Less Than 3 Seconds (JOLENE ZARAGOZA) Blood Pressure Mean: 92 Departure Communication (PCP) Reviewed previous ER visits, H&P, lab testing. Flulike symptoms. Does not appear in any respiratory distress. No chest pain, abdominal pain, vomit or diarrhea. Moist mucous membranes. Urinaing at home. She appears hydrated. Vital signs stable. 97% on room air. She does smoke. She does sound wheezy throughout. Likely more chronic. Differential diagnosis viral syndrome, pneumonia, COPD exacerbation. Patient does not appear in respiratory distress. She does have breathing treatments at home which she has not been doing. Patient received a dose of prednisone here with DuoNeb breathing treatment with some improvement. She states she felt better. Chest x-ray was obtained which did not show any pneumonia. COVID influenza was negative. Suspect viral with COPD exacerbation. I do not think clinically patient is requiring admission at this time. Will discharge with doxycycline prophylactically short burst steroids and albuterol inhaler for a refill. If any worsening symptoms such as chest pain or shortness of breath return back to ED. Follow-up with PCP in 2 to 3 days for reevaluation. Vital signs stable. (JOLENE ZARAGOZA) Impression Primary Impression: COPD with exacerbation Disposition: 01 HOME, SELF-CARE Condition: Stable Departure-Patient Inst. Decision time for Depature: 16:31 (JOLENE ZARAGOZA) Referrals: [facility] (PCP/Family) Primary Care Physician Patient Instructions: Exacerbation of COPD Add. Discharge Instructions: Take antibiotics as prescribed. Take prednisone as prescribed. Tylenol ibuprofen for pain. Recommend staying hydrated. If any increasing wheezing or shortness of breath return back to ED. All discharge instructions reviewed with patient and/or family. Voiced understanding. Scripts Prednisone (Prednisone) 20 Mg Tab 40 MG PO DAILY for 4 Days, #8 TAB Prov: JOLENE ZARAGOZA 10/13/23 Albuterol Sulfate (VENTOLIN HFA) 1 Puff Puff 2 PUFF INH Q4H for Wheezing, #1 EA 1 PUFF = 90 MCG Prov: JOLENE ZARAGOZA 10/13/23 Doxycycline Monohydrate (Doxycycline Monohydrate) 100 Mg Tablet 100 MG PO BID for 7 Days, #14 TAB Prov: JOLENE ZARAGOZA 10/13/23 Work/School Note: Work Release Form Date Seen in the Emergency Department: Oct 13, 2023 Return to Work: Oct 15, 2023 ATTENDING PHYSICIAN NOTE: I was physically present as attending physician in the emergency department during the care of this patient, but I was not directly involved in the decision making or delivery of care for this patient. (BENJAMIN CAMARENA MD) JOLENE ZARAGOZA Oct 13, 2023 16:32 BENJAMIN CAMARENA MD Oct 14, 2023 09:33
[2023-10-13] MEDS ORDERED: PRD20T PO ×2 (16:33→16:39)
[2023-10-13] MEDS ORDERED: RT-ALBUINH INH (16:33)
[2023-10-13] MEDS ORDERED: DOXY100T31 PO (16:33)
[2023-10-13 16:58] VITALS: BP 108/64
== END 2023-10-13 16:57 | disposition home or self-care (01) ==
LOC: EDUNIT# 15:17 → ER 15:20
DX: J44.9 Chronic obstructive pulmonary disease, unspecified (principal); F17.210 Nicotine dependence, cigarettes, uncomplicated; Z91.040 Latex allergy status; Z28.310 Unvaccinated for COVID-19
CPT/HCPCS: 71045; 87636; 94640